=== PATIENT | female | born 1990 | race Caucasian/White ===

== ENCOUNTER 2023-04-23 18:15 | Emergency (ER) | payer BC, SELFPAY ==
[2023-04-23 18:21] VITALS: BP 137/80; PULSE 94; RESP 16; TEMP 37.3; O2SAT 98; BMI 29.9
[2023-04-23 18:32] VITALS: O2SAT 98
--- NOTE | 2023-04-23 18:32 | ECG_ITS ---
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
--- NOTE | 2023-04-23 18:37 | XR_ITS ---
[place] [id number] Patient Name: DEBBY GRIMES MRN: [id number] date: 1990 Sex: F Assigned Patient Location: ER Current Patient Location: ED.MAIN Accession/Order Number: [id number] Exam Date: 04/23/2023 19:05 Report Date: 04/23/2023 19:39 At the request of: LISA LENNON Procedure: XR chest 2V EXAMINATION: XR chest 2V 04/23/2023 4:39 PM PST, [id number]. HISTORY: chest pain TECHNIQUE: 2 views of the chest were acquired. COMPARISONS: None. FINDINGS: Lines/tubes/other: None. Heart and mediastinum: Within normal limits. Bones: No acute osseous abnormality. Lungs: Clear. Pleura: No pleural effusion or pneumothorax. Other: No pneumoperitoneum. XR/XR chest 2V IMPRESSION: No acute cardiopulmonary abnormality. Electronically authenticated by: BONITA DOAN Date: 04/23/2023 19:39
--- NOTE | 2023-04-23 18:47 | ED_ITS ---
Documented by User: Giselle Tolliver 04/23/23 20:12 HPI - Chest Pain General Chief Complaint: Chest Pain Stated Complaint: Chest Pain Time Seen by Provider: 04/23/23 18:20 Source: patient Mode of arrival: walk-in History of Present Illness HPI narrative: 32-year-old female presents here with a chief complaint of left-sided chest wall pain and pain in her throat. She states her throat is sore and having difficulty swallowing. She has a history of acid reflux. She states she believes this pain is due to a flare. She wanted to come to the emergency room to be certain it isn't another cause. she would like to get a gastrointestinal consult.Patient is alert and oriented. She has no history of cardiac issues. She does take omeprazole but has stopped recently. Patient states her pain on left side of chest is increased with deep inspiration. she states it feels like she needs to burp but has not been able. Denies any radiation of pain. patient vital signs are stable. She is in no acute distress. Related Data Previous Rx's Medication Instructions Recorded omeprazole 40 mg capsule,delayed 40 mg PO DAILY 30 days #30 caps 04/23/23 release Allergies Allergy/AdvReac Type Severity Reaction Status Date / Time coconut Allergy Severe Verified 04/23/23 18:25 Penicillins Allergy Severe Verified 04/23/23 18:25 Review of Systems ROS Narrative All Systems are negative except as noted/marked.All systems reviewed and otherwise negative [facility] Medical History (Updated 04/23/23 @ 20:13 by Giselle Tolliver) GERD (gastroesophageal reflux disease) ?K21.9 - Gastro-esophageal reflux disease without esophagitis (ICD-10) Exam Narrative Exam Narrative: Nurses note and vital signs reviewed and patient is not hypoxic. General: The patient appears well and in no apparent distress. Patient is resting comfortably on cart. Skin: Warm, dry, no pallor noted. There is no rash noted. Head: Normocephalic, atraumatic Eye: Normal conjunctiva, no drainage, EOMI. PERRL Ears, Nose, Mouth, and Throat: oral mucosa is moist. Nares patent. Mouth without vesicles. Ear canals patent. Tm's without Erythema Cardiovascular: Regular Rate and Rhythm Respiratory: Patient is in no distress, no accessory muscle use, lungs are clear to auscultation, no wheezing, rales or rhonchi GI: Normal bowel sounds, no tenderness to palpation, no masses appreciated. No rebound, guarding, or rigidity noted. Musculoskeletal: The patient has no evidence of calf tenderness, no pitting edema, symmetrical pulses noted bilaterally Neurological: A&O x4, normal speech Psychiatric: Cooperative Constitutional Vital Signs, click to edit/add: Last Vital Signs Temp 99.1 F 04/23/23 18:21 Pulse 94 H 04/23/23 18:21 Resp 16 04/23/23 18:21 BP 137/80 04/23/23 18:21 Pulse Ox 98 04/23/23 18:32 O2 Del Method Room Air 04/23/23 18:32 Course Vital Signs Vital signs: Vital Signs Temperature 99.1 F 04/23/23 18:21 Pulse Rate 94 H 04/23/23 18:21 Respiratory Rate 16 04/23/23 18:21 Blood Pressure 137/80 04/23/23 18:21 Pulse Oximetry 98 04/23/23 18:21 Oxygen Delivery Method Room Air 04/23/23 18:21 Temperature 99.1 F 04/23/23 18:21 Pulse Rate 94 H 04/23/23 18:21 Respiratory Rate 16 04/23/23 18:21 Blood Pressure 137/80 04/23/23 18:21 Pulse Oximetry 98 04/23/23 18:32 Oxygen Delivery Method Room Air 04/23/23 18:32 MDM - Chest Pain MDM Narrative Medical decision making narrative: 32-year-old female presents here with a chief complaint of left-sided chest wall pain and pain in her throat. She states her throat is sore and having difficulty swallowing. She has a history of acid reflux. She states she believes this pain is due to a flare. She wanted to come to the emergency room to be certain it isn't another cause. she would like to get a gastrointestinal consult.Patient is alert and oriented. She has no history of cardiac issues. She does take omeprazole but has stopped recently. Patient states her pain on left side of chest is increased with deep inspiration. she states it feels like she needs to burp but has not been able. Denies any radiation of pain. patient vital signs are stable. She is in no acute distress. pt symptoms presented as gastritis.pt has chronic History of GERD has not been taking any medications. Patient was medicated here with a gastrointestinal cocktail. Her symptoms have resolved. Labwork including CBC, CMP and troponin were obtained here during her hospital stay. All were negative. EKG and chest x- ray also performed and negative. Patient's cardiac score is zero. Patient has seen Dr. España the past for colonoscopy. She was requesting to follow-up with him. I advised her that he has moved out of the area and he is currently in [place]. She can follow-up with him if she would like.I did refer her to Dr. Mclain. She'll be given a prescription for omeprazole. She will follow-up with primary care physician and Dr Mclain or [facility]. patient questions answered, patient verbalizes understanding resupply of care. Patient is pain- free at this time.pt is stable to be discharged home Differential Diagnosis Differential diagnosis: Likely atypical chest pain, costochondritis, biliary colic and other (gerd) Medical Records Data Attestation: I reviewed the patient's medical records. Lab Data Attestation: I reviewed the patient's lab results. Labs: Lab Results 04/23/23 Range/Units 18:56 WBC 10.6 (4.0-11.0) 10^3/uL RBC 4.86 (4.20-5.40) 10^6/uL Hgb 13.6 (12.0-16.0) g/dL Hct 41.8 (36.0-48.0) % MCV 86.0 (81.0-99.0) fL MCH 28.0 (26.7-34.0) pg MCHC 32.5 (29.9-35.2) g/dL RDW 12.8 (11.0-15.0) % Plt Count 365 (150-450) 10^3/uL MPV 8.6 L (9.5-13.5) fL Neut % (Auto) 60.6 (43.0-75.0) % Lymph % (Auto) 30.8 (20.5-60.0) % [place] % (Auto) 7.5 (1.7-12.0) % Eos % (Auto) 0.0 L (0.9-7.0) % Baso % (Auto) 0.8 (0.2-2.0) % Neut # (Auto) 6.4 (1.4-6.5) 10^3/uL Lymph # (Auto) 3.3 (1.2-3.8) 10^3/uL [place] # (Auto) 0.8 (0.3-0.8) 10^3/uL Eos # (Auto) 0.0 (0.0-0.7) 10^3/uL Baso # (Auto) 0.1 (0.0-0.1) 10^3/uL Abs Immat Gran (auto) 0.03 (0.00-0.03) 10^3/uL Imm/Tot Granulo (auto) 0.3 (0.0-0.5) % Sodium 137 (136-145) mmol/L Potassium 3.3 L (3.5-5.1) mmol/L Chloride 101 (98-107) mmol/L Carbon Dioxide 27.6 (21.0-32.0) mmol/L Anion Gap 11.7 BUN 9.0 (7.0-18.0) mg/dL Creatinine 1.08 H (0.55-1.02) mg/dL Est GFR ( Amer) >60 (>=60) Est GFR (Non-Af Amer) 58 L (>=60) BUN/Creatinine Ratio 8.3 Glucose 91 (74-106) mg/dL Calcium 10.0 (8.5-10.1) mg/dL Total Bilirubin 0.4 (0.2-1.0) mg/dL AST 19 (15-37) U/L ALT 24 (14-59) U/L Alkaline Phosphatase 79 (46-116) U/L Troponin I High Sens <4.0 L (4.0-51.3) pg/mL Total Protein 9.1 H (6.4-8.2) g/dL Albumin 4.2 (3.4-5.0) g/dL Globulin 4.9 g/dL Albumin/Globulin Ratio 0.9 Imaging Data Chest x-ray: Attestation: I personally reviewed and interpreted this imaging study as follows: Radiologist's impression: Procedure: XR chest 2V EXAMINATION: XR chest 2V 04/23/2023 4:39 PM [facility], [id number]. HISTORY: chest pain TECHNIQUE: 2 views of the chest were acquired. COMPARISONS: None. FINDINGS: Lines/tubes/other: None. Heart and mediastinum: Within normal limits. Bones: No acute osseous abnormality. Lungs: Clear. Pleura: No pleural effusion or pneumothorax. Other: No pneumoperitoneum. IMPRESSION: No acute cardiopulmonary abnormality. ECG Data Attestation: I personally reviewed and interpreted this ECG as follows: Interpretation: 1828 EKG normal sinus rhythm no ectopy no ST elevation or depression, no STEMI, heart rate sinus rhythm with a 87 bpm, ME interval 140 ms, QR duration 84 ms Heart Score History: Slightly/Non-Suspicious ECG: Normal Age: <45 years Risk Factors: No Risk Factors Troponin: <Normal Limit Total Heart Score Recommendations & Risks:: 0 Discharge Plan Discharge Chief Complaint: Chest Pain Clinical Impression: Gastritis, Chest wall pain Patient Disposition: Home, Self-Care Time of Disposition Decision: 20:01 Condition: Good Mode of Transportation: Private Vehicle Prescriptions / Home Meds: New omeprazole 40 mg capsule,delayed release(DR/EC) 40 mg PO DAILY 30 Days Qty: 30 0RF Instructions: Gastritis (ED) Stand Alone Forms: Portal Instructions Referrals: JENIFER GOODMAN [Primary Care Provider] - 1 week Juan Manuel Mclain MD [Physician] - 1 week Discharge Date/Time: 04/23/23 20:16 Documented by User: Robert Medina MD 04/23/23 20:30 HPI - Chest Pain General Chief Complaint: Chest Pain Stated Complaint: Chest Pain Time Seen by Provider: 04/23/23 18:20 Related Data Previous Rx's Medication Instructions Recorded omeprazole 40 mg capsule,delayed 40 mg PO DAILY 30 days #30 caps 04/23/23 release Allergies Allergy/AdvReac Type Severity Reaction Status Date / Time coconut Allergy Severe Verified 04/23/23 18:25 Penicillins Allergy Severe Verified 04/23/23 18:25 PFSH PFSH Medical History (Updated 04/23/23 @ 20:13 by Giselle Tolliver) GERD (gastroesophageal reflux disease) ?K21.9 - Gastro-esophageal reflux disease without esophagitis (ICD-10) Exam Constitutional Vital Signs, click to edit/add: Last Vital Signs Temp 99.1 F 04/23/23 18:21 Pulse 94 H 04/23/23 18:21 Resp 16 04/23/23 18:21 BP 137/80 04/23/23 18:21 Pulse Ox 98 04/23/23 18:32 O2 Del Method Room Air 04/23/23 18:32 Course Vital Signs Vital signs: Vital Signs Temperature 99.1 F 04/23/23 18:21 Pulse Rate 94 H 04/23/23 18:21 Respiratory Rate 16 04/23/23 18:21 Blood Pressure 137/80 04/23/23 18:21 Pulse Oximetry 98 04/23/23 18:21 Oxygen Delivery Method Room Air 04/23/23 18:21 Temperature 99.1 F 04/23/23 18:21 Pulse Rate 94 H 04/23/23 18:21 Respiratory Rate 16 04/23/23 18:21 Blood Pressure 137/80 04/23/23 18:21 Pulse Oximetry 98 04/23/23 18:32 Oxygen Delivery Method Room Air 04/23/23 18:32 MDM - Chest Pain MDM Narrative Medical decision making narrative: 32-year-old female presents here with a chief complaint of left-sided chest wall pain and pain in her throat. She states her throat is sore and having difficulty swallowing. She has a history of acid reflux. She states she believes this pain is due to a flare. She wanted to come to the emergency room to be certain it isn't another cause. she would like to get a gastrointestinal consult.Patient is alert and oriented. She has no history of cardiac issues. She does take omeprazole but has stopped recently. Patient states her pain on left side of chest is increased with deep inspiration. she states it feels like she needs to burp but has not been able. Denies any radiation of pain. patient vital signs are stable. She is in no acute distress. pt symptoms presented as gastritis.pt has chronic History of GERD has not been taking any medications. Patient was medicated here with a gastrointestinal cocktail. Her symptoms have resolved. Labwork including CBC, CMP and troponin were obtained here during her hospital stay. All were negative. EKG and chest x- ray also performed and negative. Patient's cardiac score is zero. Patient has s griceldan Dr. España the past for colonoscopy. She was requesting to follow-up with him. I advised her that he has moved out of the area and he is currently in [place]. She can follow-up with him if she would like.I did refer her to Dr. Mclain. She'll be given a prescription for omeprazole. She will follow-up with primary care physician and Dr Mclain or [facility]. patient questions answered, patient verbalizes understanding resupply of care. Patient is pain- free at this time.pt is stable to be discharged home Patient was seen and evaluated by Dr. East with Giselle Tolliver PA-C, not Dr Adam Lab Data Labs: Lab Results 04/23/23 Range/Units 18:56 WBC 10.6 (4.0-11.0) 10^3/uL RBC 4.86 (4.20-5.40) 10^6/uL Hgb 13.6 (12.0-16.0) g/dL Hct 41.8 (36.0-48.0) % MCV 86.0 (81.0-99.0) fL MCH 28.0 (26.7-34.0) pg MCHC 32.5 (29.9-35.2) g/dL RDW 12.8 (11.0-15.0) % Plt Count 365 (150-450) 10^3/uL MPV 8.6 L (9.5-13.5) fL Neut % (Auto) 60.6 (43.0-75.0) % Lymph % (Auto) 30.8 (20.5-60.0) % [place] % (Auto) 7.5 (1.7-12.0) % Eos % (Auto) 0.0 L (0.9-7.0) % Baso % (Auto) 0.8 (0.2-2.0) % Neut # (Auto) 6.4 (1.4-6.5) 10^3/uL Lymph # (Auto) 3.3 (1.2-3.8) 10^3/uL [place] # (Auto) 0.8 (0.3-0.8) 10^3/uL Eos # (Auto) 0.0 (0.0-0.7) 10^3/uL Baso # (Auto) 0.1 (0.0-0.1) 10^3/uL Abs Immat Gran (auto) 0.03 (0.00-0.03) 10^3/uL Imm/Tot Granulo (auto) 0.3 (0.0-0.5) % Sodium 137 (136-145) mmol/L Potassium 3.3 L (3.5-5.1) mmol/L Chloride 101 (98-107) mmol/L Carbon Dioxide 27.6 (21.0-32.0) mmol/L Anion Gap 11.7 BUN 9.0 (7.0-18.0) mg/dL Creatinine 1.08 H (0.55-1.02) mg/dL Est GFR ( Amer) >60 (>=60) Est GFR (Non-Af Amer) 58 L (>=60) BUN/Creatinine Ratio 8.3 Glucose 91 (74-106) mg/dL Calcium 10.0 (8.5-10.1) mg/dL Total Bilirubin 0.4 (0.2-1.0) mg/dL AST 19 (15-37) U/L ALT 24 (14-59) U/L Alkaline Phosphatase 79 (46-116) U/L Troponin I High Sens <4.0 L (4.0-51.3) pg/mL Total Protein 9.1 H (6.4-8.2) g/dL Albumin 4.2 (3.4-5.0) g/dL Globulin 4.9 g/dL Albumin/Globulin Ratio 0.9 Heart Score Total Heart Score Recommendations & Risks:: 0 Discharge Plan Discharge Chief Complaint: Chest Pain Clinical Impression: Gastritis, Chest wall pain Patient Disposition: Home, Self-Care Time of Disposition Decision: 20:01 Condition: Good Mode of Transportation: Private Vehicle Prescriptions / Home Meds: New omeprazole 40 mg capsule,delayed release(DR/EC) 40 mg PO DAILY 30 Days Qty: 30 0RF Instructions: Gastritis (ED) Stand Alone Forms: Portal Instructions Referrals: JENIFER GOODMAN [Primary Care Provider] - 1 week Juan Manuel Mclain MD [Physician] - 1 week Discharge Date/Time: 04/23/23 20:16
[2023-04-23 19:10] LABS: Basophils Absolute Auto 0.1 10^3/uL (0.0-0.1); Basophils Percent Auto 0.8 % (0.2-2.0); Hematocrit 41.8 % (36.0-48.0); Hemoglobin 13.6 g/dL (12.0-16.0); Immature Granulocytes Abs Auto 0.03 10^3/uL (0.00-0.03); Immature Granulocytes Pct Auto 0.3 % (0.0-0.5); Lymphocytes Absolute Auto 3.3 10^3/uL (1.2-3.8); Lymphocytes Percent Auto 30.8 % (20.5-60.0); Mean Corpuscular HGB Conc 32.5 g/dL (29.9-35.2); Mean Platelet Volume 8.6 fL (9.5-13.5); Monocytes Absolute Auto 0.8 10^3/uL (0.3-0.8); Monocytes Percent Auto 7.5 % (1.7-12.0); Neutrophils Absolute Auto 6.4 10^3/uL (1.4-6.5); Neutrophils Percent Auto 60.6 % (43.0-75.0); Platelet Count 365 10^3/uL (150-450); Red Blood Count 4.86 10^6/uL (4.20-5.40); Red Cell Distribution Width 12.8 % (11.0-15.0); White Blood Count 10.6 10^3/uL (4.0-11.0)
[2023-04-23] MEDS: lidocaine HCL 15 ML, MAG HYDROX/ALUMINUM HYD/SIMETH 30 ML, HYOSCYAMINE SULFATE 0.25 MG PO (19:26)
[2023-04-23 19:29] LABS: Alanine Aminotransferase 24 U/L (14-59); Albumin Globulin Ratio 0.9; Albumin Level 4.2 g/dL (3.4-5.0); Alkaline Phosphatase 79 U/L (46-116); Anion Gap 11.7; Aspartate Amino Transferase 19 U/L (15-37); BUN Creatinine Ratio 8.3; Bilirubin Total 0.4 mg/dL (0.2-1.0); Carbon Dioxide 27.6 mmol/L (21.0-32.0); Chloride 101 mmol/L (98-107); Estimated GFR (African America >60 (>=60); Estimated GFR (Non-African Ame 58 (>=60); Globulin 4.9 g/dL; Glucose 91 mg/dL (74-106); Potassium 3.3 mmol/L (3.5-5.1); Sodium 137 mmol/L (136-145); Total Protein 9.1 g/dL (6.4-8.2); Troponin I High Sensitivity <4.0 pg/mL (4.0-51.3)
== END 2023-04-23 20:16 | disposition home or self-care (01) ==
PROVIDERS: Physician Assistant; Emergency Provider Emergency Medicine; PCP Family Medicine
DX: K29.70 Gastritis, unspecified, without bleeding (principal); R07.89 Other chest pain; K21.9 Gastro-esophageal reflux disease without esophagitis
CPT/HCPCS: 36415; 71046; 80053; 84484; 85025; 85378; 93005; 99285

== ENCOUNTER 2023-05-11 17:55 | Emergency (ER) | payer BC, SELFPAY ==
[2023-05-11] VITALS (12 sets, daily range): BP systolic 127–172; BP diastolic 88–90; PULSE 94–123; RESP 14–25; TEMP 36.6; O2SAT 97–100; BMI 26.7
--- OUTSIDE RECORDS SUMMARY | 2023-05-11 18:00 | XMS_ITS | CCD ---
Author Name Unknown Address [address] [place] [address] Organization [facility] Care Team Providers Care Librarian Special Library Name Role Phone DO Maulik Merrill Primary Care Provider [phone] MD Andrew Sorenson Emergency Provider [phone] MD Andrew Sorenson Attending Provider MD Mary Darnell Attending Provider DO Desirae Maulik Primary Care Provider DO Maulik Merrill Attending Provider [phone] Kuns, Maulik Primary Care Unavailable Kuns, Maulik Attending Unavailable Kuns, Maulik Admitting Unavailable Andrew Sorenson Admitting Unavailable Andrew Sorenson Attending Unavailable Kuns, Maulik Primary Care Unavailable Andrew Sorenson Admitting Unavailable Andrew Sorenson Attending Unavailable Kuns, Maulik Primary Care Unavailable Printy, Mary Admitting Unavailable Printy, Mary Attending Unavailable Kuns, Maulik Primary Care Unavailable Printy, Mary Attending Unavailable Printy, Mary Admitting Unavailable Kuns, Maulik Primary Care Unavailable Printy, Mary Attending Unavailable Printy, Mary Admitting Unavailable Kuns, Maulik Primary Care Unavailable Kuns, Maulik Primary Care Unavailable Printy, Mary Attending Unavailable Printy, Mary Admitting Unavailable Kuns, Maulik Primary Care Unavailable Printy, Mary Attending Unavailable Printy, Mary Admitting Unavailable Kuns, Maulik Primary Care Unavailable Printy, Mary Attending Unavailable Printy, Mary Admitting Unavailable Kuns, Maulik Primary Care Unavailable Printy, Mary Attending Unavailable Printy, Mary Admitting Unavailable Kuns, Maulik Primary Care Unavailable Printy, Mary Attending Unavailable Printy, Mary Admitting Unavailable PRINTY, MARY J Attending Unavailable Kuns, Maulik Unavailable Allergies Allergy Classification Reported Allergen(s) Allergy Type Date of Onset Reaction(s) Facility (12 sources) Coconut extract; Translations: [coconut] Drug Allergy 3 anaphylaxis [facility] (11 sources) Penicillins; Translations: [Penicillins] Propensity to adverse reactions 3 Nausea/Vomitin g [facility] (1 source) Penicillin G Drug Allergy vomiting [facility] Other Medications Current Medications Medication Drug Class(es) Dates Sig (Normalized) Sig (Original) cyclobenzaprine hydrochloride 10 mg oral tablet (1 source) Muscle Relaxant Start: 05-05-2023 take 1 tablet by mouth every twenty-four hours Cyclobenzaprine HCl 10 MG 1 tablet at bedtime as needed Orally Once a day for 30 days May, Active ketorolac tromethamine 10 mg oral tablet (10 sources) Nonsteroidal Anti-inflammatory Drug, Cyclooxygenase Inhibitor Start: 07-13-2021 take 10 mg by mouth every six hours Ketorolac Active 10 MG PO Q6H July 13, 2021 12:00am lidocaine 0.05 mg/mg medicated patch (10 sources) Antiarrhythmic, Amide Local Anesthetic Start: 07-13-2021 apply 1 dose topically once daily Lidocaine Active 1 PATCH TOPICAL Daily July 13, 2021 12:00am leave on most painful area for up to 12 hrs Mylanta Maximum Strength 400-400-40 MG/5ML (1 source) take 10 mL by mouth twice daily as needed Mylanta Maximum Strength 400-400-40 MG/5ML 10 mL as needed Orally Twice a day Active omeprazole 40 mg delayed release oral capsule (1 source) Proton Pump Inhibitor take 1 capsule by mouth once daily Omeprazole 40 MG 1 capsule 30 minutes before morning meal Orally Once a day Active tiZANidine 4 mg oral capsule (10 sources) Central alpha-2 Adrenergic Agonist Start: 07-13-2021 take 4 mg by mouth three times daily Tizanidine Active 4 MG PO Three times daily July 13, 2021 12:00am Completed/Discontinued Medications Medication Drug Class(es) Dates Sig (Normalized) Sig (Original) acetaminophen 325 mg / oxyCODONE hydrochloride 5 mg oral tablet (10 sources) Opioid Agonist Start: 07-12-2017 End: 07-19-2017 take 1 tablet by mouth every six hours Oxycodone-Acetamin ophen Discontinued 1 TAB PO Q6H 28 7 July 12, 2017 July 18, 2017 11:04pm ibuprofen 800 mg oral tablet (10 sources) Nonsteroidal Anti-inflammatory Drug Start: 07-12-2017 End: 08-06-2018 take 800 mg by mouth three times daily Ibuprofen Discontinued 800 MG PO Three times daily July 11, 2017 11:00pm August 06, 2018 5:07am Problems Active Problems Problem Classification Problem Date Documented Da te Episodic/Chronic Abdominal pain (3 sources) Unspecified abdominal pain; Translations: [Pain in pelvis] Onset: 3 Episodic Administrative/social admission (1 source) Other specified counseling; Translations: [Other specified counseling] Onset: 3 Episodic Esophageal disorders (1 source) Gastroesophageal reflux disease; Translations: [Gastro-esophageal reflux disease without esophagitis] Chronic Fluid and electrolyte disorders (2 sources) Hypokalemia; Translations: [Hypokalemia] Onset: 3 Episodic Gastritis and duodenitis (1 source) Gastritis; Translations: [Gastritis, unspecified, without bleeding] Episodic Other endocrine disorders (1 source) Polycystic ovarian syndrome; Translations: [Polycystic ovarian syndrome] Onset: 3 Chronic Other endocrine disorders (1 source) Polycystic ovary syndrome; Translations: [Polycystic ovarian syndrome] Chronic Other gastrointestinal disorders (1 source) Dysphagia; Translations: [Dysphagia, unspecified] Episodic Other injuries and conditions due to external causes (1 source) Fracture of bone; Translations: [Other injury of unspecified body region] Episodic Other nutritional; endocrine; and metabolic disorders (1 source) Body mass index 25-29 - overweight; Translations: [Body mass index (BMI) 28.0-28.9, adult] Episodic Other and delivery including normal (10 sources) ; Translations: [Encounter for supervision of normal , unspecified, unspecified trimester] 06-25-2022 Episodic Other screening for suspected conditions (not mental disorders or infectious disease) (2 sources) Encounter for screening for cardiovascular disorders; Translations: [Patient encounter status] Onset: 3 Episodic Spondylosis; intervertebral disc disorders; other back problems (10 sources) Torticollis; Translations: [Torticollis] 03-13-2022 Episodic Sprains and strains (10 sources) Strain of neck muscle; Translations: [Strain of muscle, fascia and tendon at neck level, initial encounter] 07-11-2021 Episodic Thyroid disorders (1 source) Goiter; Translations: [Nontoxic goiter, unspecified] Chronic Unclassified (1 source) Nontoxic goiter, unspecified; Translations: [Nontoxic goiter, unspecified] Onset: 3 Unclassified (1 source) Supervision of high risk , unspecified, unspecified trimester; Translations: [Supervision of high risk , unspecified, unspecified trimester] Onset: 3 Past or Other Problems Problem Classification Problem Date Documented Da te Episodic/Chronic Ectopic (1 source) Unspecified ectopic without intrauterine ; Translations: [Unspecified ectopic without intrauterine ] Onset: 06-30-2022 Episodic Results Test Name Value Interpretation Reference Range Facility A1C with Estimated Average G ori 04-29-2023 Glucose [Mass/Vol] 117 mg/dL Normal [facility] Comment on above: Order Comment: Reaso n for Exam Establishing care with new doctor, encounter for;Flank pain; Result Comment: PERF ORMED BY: [place] [address] PATHOLOGIST AUDIO VISUAL COLLECTIONS COORDINATOR DARIANA ZENG M.D. Performed By: #### T SH3, LIPID, CBC, A1C WTH eA, CRP, CMP, URIC, ESR #### [facility] [address] [place] [address] [place] #### CINDY, RA #### [facility] , HbA1c (Bld) [Mass fraction] 5.7 % High 4.3-5.6 [facility] Comment on above: Order Comment: Reaso n for Exam Establishing care with new doctor, encounter for;Flank pain; Result Comment: Incr eased risk for diabetes: 5.7 - 6.4 diabetes: >6.4 glycemic control for adults with diabetes: <7.0 Performed By: #### T SH3, LIPID, CBC, A1C WTH eA, CRP, CMP, URIC, ESR #### [facility] [address] [place] [address] [place] #### CINDY, RA #### [facility] , CINDY Antinuclear Antibodieson 04-29-2023 Antinuclear Abs, IFA Negative Normal . [facility] Comment on above: Order Comment: Reaso n for Exam Establishing care with new doctor, encounter for;Flank pain; Reason for Exam Flank pain;PCOS (polycystic ovarian syndrome);Hypokalemia FASTING. JKW Result Comment: Nega tive <1:80 Borderline 1:80 Positive >1:80 ICAP nomenclature: AC-0 For more information about Hep-2 cell patterns use ANApatterns.org, the official website for the International Consensus on Antinuclear Antibody (CINDY) Patterns (ICAP). Performed at: [facility] [address] [id number] Electrical Tryout Person: Patricio Centeno PhD, Phone: [phone] PERFORMED BY: [place] [address] PATHOLOGIST AUDIO VISUAL COLLECTIONS COORDINATOR DARIANA ZENG M.D. Performed By: #### T SH3, LIPID, CBC, A1C WTH eA, CRP, CMP, URIC, ESR #### [address] #### CINDY, RA #### [facility] , Alanine aminotransferase [En zymatic activity/volume] in Serum or PlasmaOrdered By: Maulik Merrill on 04-29-2023 ALT [Catalytic activity/Vol] 29 U/L 7-52 [facility] Albumin [Mass/volume] in Ser um or Plasma by Bromocresol green (BCG) dye binding methoOrdered By: Maulik Merrill on 04-29-2023 Albumin BCG dye [Mass/Vol] 4.7 g/dL 3.5-5.7 [facility] Alkaline phosphatase [Enzyma tic activity/volume] in Serum or PlasmaOrdered By: Mualik Merrill on 04-29-2023 ALP [Catalytic activity/Vol] 63 U/L 34-104 [facility] Aspartate aminotransferase [ Enzymatic activity/volume] in Serum or PlasmaOrdered By: Maulik Merrill on 04-29-2023 AST [Catalytic activity/Vol] 26 U/L 13-39 [facility] Basophils Auto (Bld) [#/Vol] Ordered By: Maulik Merrill on 04-29-2023 Basophils (Bld) [#/Vol] 0.0 10*3/uL 0.0-0.2 [facility] Basophils/100 WBC Auto (Bld) Ordered By: Maulik Merrill on 04-29-2023 Basophils/100 WBC (Bld) 0.7 % . [facility] Bilirubin.total [Mass/volume ] in Serum or PlasmaOrdered By: Maulik Merrill on 04-29-2023 Bilirubin [Mass/Vol] 0.6 mg/dL 0.3-1.0 [facility] C reactive protein [Mass/vol ume] in Serum or PlasmaOrdered By: Maulik Merrill on 04-29-2023 CRP [Mass/Vol] 1.8 mg/dL 0.0-0.5 [facility] C-Reactive Proteinon 023 C-Reactive Protein 1.8 mg/dL High 0.0-0.[address] [facility] Comment on above: Order Comment: Reaso n for Exam Establishing care with new doctor, encounter for;Flank pain; Reason for Exam Flank pain;PCOS (polycystic ovarian syndrome);Hypokalemia FASTING. JKW Performed By: #### T SH3, LIPID, CBC, A1C WTH eA, CRP, CMP, URIC, ESR #### [facility] [address] [place] [address] [place] #### CINDY, RA #### [facility] , Calcium [Mass/volume] in Ser um or PlasmaOrdered By: Maulik Merrill on 04-29-2023 Calcium [Mass/Vol] 9.7 mg/dL 8.6-10.[address] [facility] Carbon dioxide, total [Moles /volume] in Serum or PlasmaOrdered By: Maulik Merrill on 04-29-2023 CO2 [Moles/Vol] 28.1 mmol/L 21.0-31.0 [facility] Chloride [Moles/volume] in S nabila or PlasmaOrdered By: Maulik Merrill on 04-29-2023 Chloride [Moles/Vol] 105 mmol/L 98-107 [facility] Cholesterol [Mass/volume] in Serum or PlasmaOrdered By: Maulik Merrill on 04-29-2023 Cholesterol [Mass/Vol] 212 mg/dL 140-200 [facility] Comment on above: Chol less than 200 m g/dl low riskChol 201-239 mg/dl borderline riskChol 240 mg/dl and greater high risk Cholesterol in LDL Calc [Mas s/Vol]Ordered By: Maulik Merrill on 04-29-2023 Cholesterol in LDL [Mass/Vol] 144 mg/dL 0-100 [facility] Comment on above: LDL ATP III CLASSIFI CATIONLDL less than 100 mg/dL OptimalLDL 100-129 mg/dL Near or above optimalLDL 130-159 mg/dL Borderline highLDL 160-189 mg/dL HighLDL greater than 189 mg/dL Very high Cholesterol in VLDL Calc [Ma ss/Vol]Ordered By: Maulik Merrill on 04-29-2023 Cholesterol in VLDL [Mass/Vol] 25 mg/dL [facility] Complete Blood Count Auto Di ffon 04-29-2023 Basophils (Bld) [#/Vol] 0.0 10*3/uL Normal 0.0-0.2 [facility] Comment on above: Order Comment: Reaso n for Exam Establishing care with new doctor, encounter for;Flank pain; Reason for Exam Flank pain;PCOS (polycystic ovarian syndrome);Hypokalemia Performed By: #### T SH3, LIPID, CBC, A1C WTH eA, CRP, CMP, URIC, ESR #### [facility] [address] [place] [address] [place] #### CINDY, RA #### [facility] , Basophils/100 WBC (Bld) 0.7 % Normal . [facility] Comment on above: Order Comment: Reaso n for Exam Establishing care with new doctor, encounter for;Flank pain; Reason for Exam Flank pain;PCOS (polycystic ovarian syndrome);Hypokalemia Performed By: #### T SH3, LIPID, CBC, A1C WTH eA, CRP, CMP, URIC, ESR #### [facility] [address] [place] [address] [place] #### CINDY, RA #### [facility] , Eosinophils (Bld) [#/Vol] 0.1 10*3/uL Normal 0.0-0.45 [facility] Comment on above: Order Comment: Reaso n for Exam Establishing care with new doctor, encounter for;Flank pain; Reason for Exam Flank pain;PCOS (polycystic ovarian syndrome);Hypokalemia Performed By: #### T SH3, LIPID, CBC, A1C WTH eA, CRP, CMP, URIC, ESR #### [address] #### CINDY, RA #### [facility] , Eosinophils/100 WBC (Bld) 2.1 % Normal . [facility] Comment on above: Order Comment: Reaso n for Exam Establishing care with new doctor, encounter for;Flank pain; Reason for Exam Flank pain;PCOS (polycystic ovarian syndrome);Hypokalemia Performed By: #### T SH3, LIPID, CBC, A1C WTH eA, CRP, CMP, URIC, ESR #### [place] [address] [place] #### CINDY, RA #### [facility] , Erythrocyte distribution width (RBC) [Ratio] 13.4 % Normal 11.9-15.3 [facility] Comment on above: Order Comment: Reaso n for Exam Establishing care with new doctor, encounter for;Flank pain; Reason for Exam Flank pain;PCOS (polycystic ovarian syndrome);Hypokalemia Performed By: #### T SH3, LIPID, CBC, A1C WTH eA, CRP, CMP, URIC, ESR #### [place] [address] [place] #### CINDY, RA #### [facility] , Hematocrit (Bld) [Volume fraction] 40.0 % Normal 34.0-46.4 [facility] Comment on above: Order Comment: Reaso n for Exam Establishing care with new doctor, encounter for;Flank pain; Reason for Exam Flank pain;PCOS (polycystic ovarian syndrome);Hypokalemia Performed By: #### T SH3, LIPID, CBC, A1C WTH eA, CRP, CMP, URIC, ESR #### [facility] [address] [place] [address] #### CINDY, RA #### [facility] , Hemoglobin (Bld) [Mass/Vol] 13.6 g/dL Normal 11.8-15.4 [facility] Comment on above: Order Comment: Reaso n for Exam Establishing care with new doctor, encounter for;Flank pain; Reason for Exam Flank pain;PCOS (polycystic ovarian syndrome);Hypokalemia Performed By: #### T SH3, LIPID, CBC, A1C WTH eA, CRP, CMP, URIC, ESR #### [facility] [address] [place] [address] #### CINDY, RA #### [facility] , Lymphocytes (Bld) [#/Vol] 2.3 10*3/uL Normal 1.00-4.8 [facility] Comment on above: Order Comment: Reaso n for Exam Establishing care with new doctor, encounter for;Flank pain; Reason for Exam Flank pain;PCOS (polycystic ovarian syndrome);Hypokalemia Performed By: #### T SH3, LIPID, CBC, A1C WTH eA, CRP, CMP, URIC, ESR #### [facility] [address] [place] [address] #### CINDY, RA #### [facility] , Lymphocytes/100 WBC (Bld) 35.3 % Normal . [facility] Comment on above: Order Comment: Reaso n for Exam Establishing care with new doctor, encounter for;Flank pain; Reason for Exam Flank pain;PCOS (polycystic ovarian syndrome);Hypokalemia Performed By: #### T SH3, LIPID, CBC, A1C WTH eA, CRP, CMP, URIC, ESR #### [facility] [address] [place] [address] [place] #### CINDY, RA #### [facility] , MCH (RBC) [Entitic mass] 28.3 pg Normal 24.7-34.3 [facility] Comment on above: Order Comment: Reaso n for Exam Establishing care with new doctor, encounter for;Flank pain; Reason for Exam Flank pain;PCOS (polycystic ovarian syndrome);Hypokalemia Performed By: #### T SH3, LIPID, CBC, A1C WTH eA, CRP, CMP, URIC, ESR #### [place] [address] [place] #### CINDY, RA #### [facility] , MCV (RBC) [Entitic vol] 83.2 fL Normal 80-100 [facility] Comment on above: Order Comment: Reaso n for Exam Establishing care with new doctor, encounter for;Flank pain; Reason for Exam Flank pain;PCOS (polycystic ovarian syndrome);Hypokalemia Performed By: #### T SH3, LIPID, CBC, A1C WTH eA, CRP, CMP, URIC, ESR #### [place] [address] [place] #### CINDY, RA #### [facility] , Mean Corpuscular HGB Conc 34.0 g/dL Normal 32.0-35.0 [facility] Comment on above: Order Comment: Reaso n for Exam Establishing care with new doctor, encounter for;Flank pain; Reason for Exam Flank pain;PCOS (polycystic ovarian syndrome);Hypokalemia Performed By: #### T SH3, LIPID, CBC, A1C WTH eA, CRP, CMP, URIC, ESR #### [place] [address] [place] #### CINDY, RA #### [facility] , Monocytes (Bld) [#/Vol] 0.6 10*3/uL Normal 0.0-0.8 [facility] Comment on above: Order Comment: Reaso n for Exam Establishing care with new doctor, encounter for;Flank pain; Reason for Exam Flank pain;PCOS (polycystic ovarian syndrome);Hypokalemia Performed By: #### T SH3, LIPID, CBC, A1C WTH eA, CRP, CMP, URIC, ESR #### [place] [address] [place] #### CINDY, RA #### [facility] , Monocytes/100 WBC (Bld) 8.4 % Normal . [facility] Comment on above: Order Comment: Reaso n for Exam Establishing care with new doctor, encounter for;Flank pain; Reason for Exam Flank pain;PCOS (polycystic ovarian syndrome);Hypokalemia Performed By: #### T SH3, LIPID, CBC, A1C WTH eA, CRP, CMP, URIC, ESR #### [facility] [address] [place] [address] [place] #### CINDY, RA #### [facility] , Neutrophils (Bld) [#/Vol] 3.5 10*3/uL Normal 1.8-7.7 [facility] Comment on above: Order Comment: Reaso n for Exam Establishing care with new doctor, encounter for;Flank pain; Reason for Exam Flank pain;PCOS (polycystic ovarian syndrome);Hypokalemia Performed By: #### T SH3, LIPID, CBC, A1C WTH eA, CRP, CMP, URIC, ESR #### [place] [address] [place] #### CINDY, RA #### [facility] , Neutrophils/100 WBC (Bld) 53.5 % Normal . [facility] Comment on above: Order Comment: Reaso n for Exam Establishing care with new doctor, encounter for;Flank pain; Reason for Exam Flank pain;PCOS (polycystic ovarian syndrome);Hypokalemia Performed By: #### T SH3, LIPID, CBC, A1C WTH eA, CRP, CMP, URIC, ESR #### [facility] [address] [place] [address] [place] #### CINDY, RA #### [facility] , NRBC% 0.1 /100{WBC} Normal 0-0.5 [facility] Comment on above: Order Comment: Reaso n for Exam Establishing care with new doctor, encounter for;Flank pain; Reason for Exam Flank pain;PCOS (polycystic ovarian syndrome);Hypokalemia Performed By: #### T SH3, LIPID, CBC, A1C WTH eA, CRP, CMP, URIC, ESR #### [facility] [address] [place] [address] [place] #### CINDY, RA #### [facility] , Platelet mean volume (Bld) [Entitic vol] 6.9 fL Normal 6.3-10.7 [facility] Comment on above: Order Comment: Reaso n for Exam Establishing care with new doctor, encounter for;Flank pain; Reason for Exam Flank pain;PCOS (polycystic ovarian syndrome);Hypokalemia Performed By: #### T SH3, LIPID, CBC, A1C WTH eA, CRP, CMP, URIC, ESR #### [facility] [address] [place] [address] [place] #### CINDY, RA #### [facility] , Platelets (Bld) [#/Vol] 341 10*3/uL Normal 150-450 [facility] Comment on above: Order Comment: Reaso n for Exam Establishing care with new doctor, encounter for;Flank pain; Reason for Exam Flank pain;PCOS (polycystic ovarian syndrome);Hypokalemia Performed By: #### T SH3, LIPID, CBC, A1C WTH eA, CRP, CMP, URIC, ESR #### [facility] [address] [place] [address] [place] #### CINDY, RA #### [facility] , RBC (Bld) [#/Vol] 4.81 10*6/uL Normal 3.60-5.00 [facility] Comment on above: Order Comment: Reaso n for Exam Establishing care with new doctor, encounter for;Flank pain; Reason for Exam Flank pain;PCOS (polycystic ovarian syndrome);Hypokalemia Performed By: #### T SH3, LIPID, CBC, A1C WTH eA, CRP, CMP, URIC, ESR #### [facility] [address] [place] [address] [place] #### CINDY, RA #### [facility] , WBC (Bld) [#/Vol] 6.6 10*3/uL Normal 3.8-11.[address] [facility] Comment on above: Order Comment: Reaso n for Exam Establishing care with new doctor, encounter for;Flank pain; Reason for Exam Flank pain;PCOS (polycystic ovarian syndrome);Hypokalemia Performed By: #### T SH3, LIPID, CBC, A1C WTH eA, CRP, CMP, URIC, ESR #### [facility] [address] [place] [address] [place] #### CINDY, RA #### [facility] , Comprehensive Metabolic Pane jhon 04-29-2023 Albumin [Mass/Vol] 4.7 g/dL Normal 3.5-5.[address] [facility] Comment on above: Order Comment: Reaso n for Exam Establishing care with new doctor, encounter for;Flank pain; Reason for Exam Flank pain;PCOS (polycystic ovarian syndrome);Hypokalemia FASTING. JKW Performed By: #### T SH3, LIPID, CBC, A1C WTH eA, CRP, CMP, URIC, ESR #### [place] [address] [place] #### CINDY, RA #### [facility] , Albumin/Globulin [Mass ratio] 1.3 {ratio} Normal [facility] Comment on above: Order Comment: Reaso n for Exam Establishing care with new doctor, encounter for;Flank pain; Reason for Exam Flank pain;PCOS (polycystic ovarian syndrome);Hypokalemia FASTING. JKW Performed By: #### T SH3, LIPID, CBC, A1C WTH eA, CRP, CMP, URIC, ESR #### [facility] [address] [place] [address] [place] #### CINDY, RA #### [facility] , ALP [Catalytic activity/Vol] 63 U/L Normal 34-104 [facility] Comment on above: Order Comment: Reaso n for Exam Establishing care with new doctor, encounter for;Flank pain; Reason for Exam Flank pain;PCOS (polycystic ovarian syndrome);Hypokalemia FASTING. JKW Performed By: #### T SH3, LIPID, CBC, A1C WTH eA, CRP, CMP, URIC, ESR #### [place] [address] [place] #### CINDY, RA #### [facility] , ALT [Catalytic activity/Vol] 29 U/L Normal 7-52 [facility] Comment on above: Order Comment: Reaso n for Exam Establishing care with new doctor, encounter for;Flank pain; Reason for Exam Flank pain;PCOS (polycystic ovarian syndrome);Hypokalemia FASTING. JKW Performed By: #### T SH3, LIPID, CBC, A1C WTH eA, CRP, CMP, URIC, ESR #### [facility] [address] [place] [address] [place] #### CINDY, RA #### [facility] , Anion gap [Moles/Vol] 8.9 mmol/L Normal 6.0-15.0 [facility] Comment on above: Order Comment: Reaso n for Exam Establishing care with new doctor, encounter for;Flank pain; Reason for Exam Flank pain;PCOS (polycystic ovarian syndrome);Hypokalemia FASTING. JKW Performed By: #### T SH3, LIPID, CBC, A1C WTH eA, CRP, CMP, URIC, ESR #### [facility] [address] [place] [address] [place] #### CINDY, RA #### [facility] , AST [Catalytic activity/Vol] 26 U/L Normal 13-39 [facility] Comment on above: Order Comment: Reaso n for Exam Establishing care with new doctor, encounter for;Flank pain; Reason for Exam Flank pain;PCOS (polycystic ovarian syndrome);Hypokalemia FASTING. JKW Performed By: #### T SH3, LIPID, CBC, A1C WTH eA, CRP, CMP, URIC, ESR #### [facility] [address] [place] [address] [place] #### CINDY, RA #### [facility] , Bilirubin [Mass/Vol] 0.6 mg/dL Normal 0.3-1.0 [facility] Comment on above: Order Comment: Reaso n for Exam Establishing care with new doctor, encounter for;Flank pain; Reason for Exam Flank pain;PCOS (polycystic ovarian syndrome);Hypokalemia FASTING. JKW Performed By: #### T SH3, LIPID, CBC, A1C WTH eA, CRP, CMP, URIC, ESR #### [facility] [address] [place] [address] [place] #### CINDY, RA #### [facility] , Calcium [Mass/Vol] 9.7 mg/dL Normal 8.6-10.[address] [facility] Comment on above: Order Comment: Reaso n for Exam Establishing care with new doctor, encounter for;Flank pain; Reason for Exam Flank pain;PCOS (polycystic ovarian syndrome);Hypokalemia FASTING. JKW Performed By: #### T SH3, LIPID, CBC, A1C WTH eA, CRP, CMP, URIC, ESR #### [place] [address] [place] #### CINDY, RA #### [facility] , Chloride [Moles/Vol] 105 mmol/L Normal 98-107 [facility] Comment on above: Order Comment: Reaso n for Exam Establishing care with new doctor, encounter for;Flank pain; Reason for Exam Flank pain;PCOS (polycystic ovarian syndrome);Hypokalemia FASTING. JKW Performed By: #### T SH3, LIPID, CBC, A1C WTH eA, CRP, CMP, URIC, ESR #### [place] [address] [place] #### CINDY, RA #### [facility] , CO2 [Moles/Vol] 28.1 mmol/L Normal 21.0-31.0 [facility] Comment on above: Order Comment: Reaso n for Exam Establishing care with new doctor, encounter for;Flank pain; Reason for Exam Flank pain;PCOS (polycystic ovarian syndrome);Hypokalemia FASTING. JKW Performed By: #### T SH3, LIPID, CBC, A1C WTH eA, CRP, CMP, URIC, ESR #### [place] [address] [place] #### CINDY, RA #### [facility] , Creatinine [Mass/Vol] 0.93 mg/dL Normal 0.60-1.20 [facility] Comment on above: Order Comment: Reaso n for Exam Establishing care with new doctor, encounter for;Flank pain; Reason for Exam Flank pain;PCOS (polycystic ovarian syndrome);Hypokalemia FASTING. JKW Performed By: #### T SH3, LIPID, CBC, A1C WTH eA, CRP, CMP, URIC, ESR #### [place] [address] [place] #### CINDY, RA #### [facility] , GFR/1.73 sq M.predicted MDRD (S/P/Bld) [Vol rate/Area] mL/min/{1.73_m2} Normal [facility] Comment on above: Order Comment: Reaso n for Exam Establishing care with new doctor, encounter for;Flank pain; Reason for Exam Flank pain;PCOS (polycystic ovarian syndrome);Hypokalemia FASTING. JKW Performed By: #### T SH3, LIPID, CBC, A1C WTH eA, CRP, CMP, URIC, ESR #### [place] [address] [place] #### CINDY, RA #### [facility] , Globulin (S) [Mass/Vol] 3.5 g/dL Normal [facility] Comment on above: Order Comment: Reaso n for Exam Establishing care with new doctor, encounter for;Flank pain; Reason for Exam Flank pain;PCOS (polycystic ovarian syndrome);Hypokalemia FASTING. JKW Performed By: #### T SH3, LIPID, CBC, A1C WTH eA, CRP, CMP, URIC, ESR #### [place] [address] [place] #### CINDY, RA #### [facility] , Glucose [Mass/Vol] 94 mg/dL Normal 70-[address] [facility] Comment on above: Order Comment: Reaso n for Exam Establishing care with new doctor, encounter for;Flank pain; Reason for Exam Flank pain;PCOS (polycystic ovarian syndrome);Hypokalemia FASTING. JKW Result Comment: [facility] Glucose Reference Range is dependent on time and content of last meal. Glucose of more than 200 mg/dL in a nonstressed, ambulatory subject supports the diagnosis of Diabetes Mellitus. ADA recommended reference range Performed By: #### T SH3, LIPID, CBC, A1C WTH eA, CRP, CMP, URIC, ESR #### [facility] [address] [place] [address] [place] #### CINDY, RA #### [facility] , Potassium [Moles/Vol] 4.0 mmol/L Normal 3.5-5.1 [facility] Comment on above: Order Comment: Reaso n for Exam Establishing care with new doctor, encounter for;Flank pain; Reason for Exam Flank pain;PCOS (polycystic ovarian syndrome);Hypokalemia FASTING. JKW Performed By: #### T SH3, LIPID, CBC, A1C WTH eA, CRP, CMP, URIC, ESR #### [place] [address] [place] #### CINDY, RA #### [facility] , Protein [Mass/Vol] 8.2 g/dL Normal 6.4-8.[address] [facility] Comment on above: Order Comment: Reaso n for Exam Establishing care with new doctor, encounter for;Flank pain; Reason for Exam Flank pain;PCOS (polycystic ovarian syndrome);Hypokalemia FASTING. JKW Performed By: #### T SH3, LIPID, CBC, A1C WTH eA, CRP, CMP, URIC, ESR #### [place] [address] [place] #### CINDY, RA #### [facility] , Sodium [Moles/Vol] 138 mmol/L Normal 136-[address] [facility] Comment on above: Order Comment: Reaso n for Exam Establishing care with new doctor, encounter for;Flank pain; Reason for Exam Flank pain;PCOS (polycystic ovarian syndrome);Hypokalemia FASTING. JKW Performed By: #### T SH3, LIPID, CBC, A1C WTH eA, CRP, CMP, URIC, ESR #### [place] [address] [place] #### CINDY, RA #### [facility] , Urea nitrogen [Mass/Vol] 8 mg/dL Normal 7-25 [facility] Comment on above: Order Comment: Reaso n for Exam Establishing care with new doctor, encounter for;Flank pain; Reason for Exam Flank pain;PCOS (polycystic ovarian syndrome);Hypokalemia FASTING. JKW Performed By: #### T SH3, LIPID, CBC, A1C WTH eA, CRP, CMP, URIC, ESR #### [facility] [address] [place] [address] [place] #### CINDY, RA #### [facility] , Creatinine [Mass/volume] in Serum or PlasmaOrdered By: Maulik Merrill on 04-29-2023 Creatinine [Mass/Vol] 0.93 mg/dL 0.60-1.20 [facility] Eosinophils Auto (Bld) [#/Vo l]Ordered By: Maulik Merrill on 04-29-2023 Eosinophils (Bld) [#/Vol] 0.1 10*3/uL 0.0-0.45 [facility] Eosinophils/100 WBC Auto (Bl d)Ordered By: Maulik Merrill on 04-29-2023 Eosinophils/100 WBC (Bld) 2.1 % . [facility] Erythrocyte Sedimentation Ra karel 04-29-2023 ESR (Bld) [Velocity] 31 mm/h High 0-19 [facility] Comment on above: Order Comment: Reaso n for Exam Establishing care with new doctor, encounter for;Flank pain; Reason for Exam Flank pain;PCOS (polycystic ovarian syndrome);Hypokalemia Result Comment: PERF ORMED BY: [place] [address] PATHOLOGIST AUDIO VISUAL COLLECTIONS COORDINATOR DARIANA ZENG M.D. Performed By: #### T SH3, LIPID, CBC, A1C WTH eA, CRP, CMP, URIC, ESR #### [place] [address] [place] #### CINDY, RA #### [facility] , Erythrocyte distribution wid th Auto (RBC) [Ratio]Ordered By: Maulik Merrill on 04-29-2023 Erythrocyte distribution width (RBC) [Ratio] 13.4 % 11.9-15.3 [facility] Erythrocyte sedimentation ra te by Photometric methodOrdered By: Maulik Merrill on 04-29-2023 ESR Photometric method (Bld) [Velocity] 31 mm/hr 0-19 [facility] Globulin Calc (S) [Mass/Vol] Ordered By: Maulik Merrill on 04-29-2023 Globulin (S) [Mass/Vol] 3.5 g/dL [facility] Glucose [Mass/volume] in Ser um or PlasmaOrdered By: Maulik Merrill on 04-29-2023 Glucose [Mass/Vol] 94 mg/dL 70-[address] [facility] Comment on above: ADA recommended refe rence rangeRandom Glucose Reference Range is dependent on time and content of last meal. Glucose of more than 200 mg/dL in a nonstressed, ambulatory subject supports the diagnosis of Diabetes Mellitus. Hematocrit Auto (Bld) [Volum e fraction]Ordered By: Maulik Merrill on 04-29-2023 Hematocrit (Bld) [Volume fraction] 40.0 % 34.0-46.4 [facility] Hemoglobin [Mass/volume] in BloodOrdered By: Maulik Merrill on 04-29-2023 Hemoglobin (Bld) [Mass/Vol] 13.6 g/dL 11.8-15.4 [facility] Leukocytes [#/volume] correc maxime for nucleated erythrocytes in Blood by Automated counOrdered By: Maulik Merrill on 04-29-2023 WBC corrected for nucl RBC Auto (Bld) [#/Vol] 6.6 10*3/uL 3.8-11.6 [facility] Lipid Panelon 04-29-2023 Cholesterol [Mass/Vol] 212 mg/dL High 140-200 [facility] Comment on above: Order Comment: Reaso n for Exam Establishing care with new doctor, encounter for;Flank pain; Reason for Exam Flank pain;PCOS (polycystic ovarian syndrome);Hypokalemia FASTING. JKW Result Comment: Chol less than 200 mg/dl low risk Chol 201-239 mg/dl borderline risk Chol 240 mg/dl and greater high risk Performed By: #### T SH3, LIPID, CBC, [facility], CRP, CMP, URIC, ESR #### [facility] [address] [place] [address] [place] #### CINDY, RA #### [facility] , Cholesterol in HDL [Mass/Vol] 43 mg/dL Normal 23-92 [facility] Comment on above: Order Comment: Reaso n for Exam Establishing care with new doctor, encounter for;Flank pain; Reason for Exam Flank pain;PCOS (polycystic ovarian syndrome);Hypokalemia FASTING. JKW Result Comment: HDL CHOL ATP-III CLASSIFICATION Cardiovascular Risk HDL > or equal to 60 mg/dL LOW HDL < 40 mg/dL HIGH Performed By: #### T SH3, LIPID, CBC, A1C WTH eA, CRP, CMP, URIC, ESR #### [place] [address] [place] #### CINDY, RA #### [facility] , Cholesterol.total/Choles terol in HDL [Mass ratio] 4.9 {ratio} Normal <5.0 [facility] Comment on above: Order Comment: Reaso n for Exam Establishing care with new doctor, encounter for;Flank pain; Reason for Exam Flank pain;PCOS (polycystic ovarian syndrome);Hypokalemia FASTING. JKW Performed By: #### T SH3, LIPID, CBC, A1C WTH eA, CRP, CMP, URIC, ESR #### [place] [address] [place] #### CINDY, RA #### [facility] , LDL Cholesterol,Calculated 144 mg/dL High 0-100 [facility] Comment on above: Order Comment: Reaso n for Exam Establishing care with new doctor, encounter for;Flank pain; Reason for Exam Flank pain;PCOS (polycystic ovarian syndrome);Hypokalemia FASTING. JKW Result Comment: LDL ATP III CLASSIFICATION LDL less than 100 mg/dL Optimal LDL 100-129 mg/dL Near or above optimal LDL 130-159 mg/dL Borderline high LDL 160-189 mg/dL High LDL greater than 189 mg/dL Very high Performed By: #### T SH3, LIPID, CBC, A1C WTH eA, CRP, CMP, URIC, ESR #### [facility] [address] [place] [address] [place] #### CINDY, RA #### [facility] , Triglyceride w/Reflex 126 mg/dL Normal 0-149 [facility] Comment on above: Order Comment: Reaso n for Exam Establishing care with new doctor, encounter for;Flank pain; Reason for Exam Flank pain;PCOS (polycystic ovarian syndrome);Hypokalemia FASTING. JKW Result Comment: TRIG ATP III CLASSIFICATION TRIG less than 150 mg/dL Normal TRIG 150-199 mg/dL Borderline high TRIG 200-500 mg/dL High TRIG greater than 500 mg/dL Very high Standard traceable to the Center for Disease Conrtrol and Prevention (CDC) test method. Performed By: #### T SH3, LIPID, CBC, A1C WTH eA, CRP, CMP, URIC, ESR #### [address] #### CINDY, RA #### [facility] , VLDL CHOLESTEROL 25 mg/dL Normal [facility] Comment on above: Order Comment: Reaso n for Exam Establishing care with new doctor, encounter for;Flank pain; Reason for Exam Flank pain;PCOS (polycystic ovarian syndrome);Hypokalemia FASTING. JKW Performed By: #### T SH3, LIPID, CBC, A1C WTH eA, CRP, CMP, URIC, ESR #### [place] [address] [place] #### CINDY, RA #### [facility] , Lymphocytes Auto (Bld) [#/Vo l]Ordered By: Maulik Merrill on 04-29-2023 Lymphocytes (Bld) [#/Vol] 2.3 10*3/uL 1.00-4.8 [facility] Lymphocytes/100 WBC Auto (Bl d)Ordered By: Maulik Merrill on 04-29-2023 Lymphocytes/100 WBC (Bld) 35.3 % . [facility] MCH Auto (RBC) [Entitic mass ]Ordered By: Maulik Merrill on 04-29-2023 MCH (RBC) [Entitic mass] 28.3 pg 24.7-34.3 [facility] MCHC Auto (RBC) [Mass/Vol]Or dered By: Maulik Merrill on 04-29-2023 MCHC (RBC) [Mass/Vol] 34.0 g/dL 32.0-35.0 [facility] MCV Auto (RBC) [Entitic vol] Ordered By: Maulik Merrill on 04-29-2023 MCV (RBC) [Entitic vol] 83.2 fL 80-100 [facility] Monocytes Auto (Bld) [#/Vol] Ordered By: Maulik Merrill on 04-29-2023 Monocytes (Bld) [#/Vol] 0.6 10*3/uL 0.0-0.8 [facility] Monocytes/100 WBC Auto (Bld) Ordered By: Maulik Merrill on 04-29-2023 Monocytes/100 WBC (Bld) 8.4 % . [facility] Neutrophils Auto (Bld) [#/Vo l]Ordered By: Maulik Merrill on 04-29-2023 Neutrophils (Bld) [#/Vol] 3.5 10*3/uL 1.8-7.7 [facility] Neutrophils/100 WBC Auto (Bl d)Ordered By: Maulik Merrill on 04-29-2023 Neutrophils/100 WBC (Bld) 53.5 % . [facility] No Panel InformationOrdered By: Maulik Merrill on 04-29-2023 Estimated GFR (CKD-EPI) > 60.0 mL/Min [facility] Creatinine Clearance (Chem N/A [facility] Nucleated erythrocytes [Pres ence] in Blood by Automated countOrdered By: Maulik Merrill on 04-29-2023 Nucleated RBC Auto Ql (Bld) 0.1 /100{WBC} 0-0.5 [facility] Platelet mean volume Auto (B ld) [Entitic vol]Ordered By: Maulik Merrill on 04-29-2023 Platelet mean volume (Bld) [Entitic vol] 6.9 fL 6.3-10.7 [facility] Platelets Auto (Bld) [#/Vol] Ordered By: Maulik Merrill on 04-29-2023 Platelets (Bld) [#/Vol] 341 10*3/uL 150-450 [facility] Potassium [Moles/volume] in Serum or PlasmaOrdered By: Maulik Merrill on 04-29-2023 Potassium [Moles/Vol] 4.0 mmol/L 3.5-5.1 [facility] Protein [Mass/volume] in Ser um or PlasmaOrdered By: Maulik Merrill on 04-29-2023 Protein [Mass/Vol] 8.2 g/dL 6.4-8.[address] [facility] RBC Auto (Bld) [#/Vol]Ordere d By: Maulik Merrill on 04-29-2023 RBC (Bld) [#/Vol] 4.81 10*6/uL 3.60-5.00 [facility] Rheumatoid Factoron 04-29-20 Rheumatoid Factor <10.0 Normal <14.0 [facility] Comment on above: Order Comment: Reaso n for Exam Flank pain;PCOS (polycystic ovarian syndrome);Hypokalemia Result Comment: Perf ormed at: CB - [facility] [place] [address] Electrical Tryout Person: Patricio Centeno PhD, Phone: [phone] Performed By: #### T SH3, LIPID, CBC, A1C WTH eA, CRP, CMP, URIC, ESR #### [address] #### CINDY, RA #### [facility] , Serum or plasma albumin/glob ulin mass ratioOrdered By: Maulik Merrill on 04-29-2023 Albumin/Globulin [Mass ratio] 1.3 {ratio} [facility] Serum or plasma anion gap de terminationOrdered By: Maulik Merrill on 04-29-2023 Anion gap [Moles/Vol] 8.9 mmol/L 6.0-15.0 [facility] Serum or plasma high density lipoprotein (HDL) cholesterol measurementOrdered By: Maulik Merrill on 04-29-2023 Cholesterol in HDL [Mass/Vol] 43 mg/dL 23-92 [facility] Comment on above: HDL CHOL ATP-III CLA SSIFICATION Cardiovascular RiskHDL > or equal to 60 mg/dL LOWHDL < 40 mg/dL HIGH Serum or plasma total choles terol/high density lipoprotein (HDL) cholesterol mass ratOrdered By: Maulik Merrill on 04-29-2023 Cholesterol.total/Choles terol in HDL [Mass ratio] 4.9 {ratio} <5.0 [facility] Sodium [Moles/volume] in Ser um or PlasmaOrdered By: Maulik Merrill on 04-29-2023 Sodium [Moles/Vol] 138 mmol/L 136-[address] [facility] Thyroid Stimulating Hormoneo n 04-29-2023 TSH Qn 3.82 m[IU]/L Normal 0.45-5.33 [facility] Comment on above: Order Comment: Reaso n for Exam Establishing care with new doctor, encounter for;Flank pain; Reason for Exam Flank pain;PCOS (polycystic ovarian syndrome);Hypokalemia FASTING. JKW Result Comment: PERF ORMED BY: [place] [address] PATHOLOGIST AUDIO VISUAL COLLECTIONS COORDINATOR DARIANA ZENG M.D. Performed By: #### T SH3, LIPID, CBC, A1C WT eA, CRP, CMP, URIC, ESR #### [facility] [address] [place] [address] [place] #### CINDY, RA #### [facility] , Thyrotropin [Units/volume] i n Serum or PlasmaOrdered By: Maulik Merrill on 04-29-2023 TSH Qn 3.82 m[IU]/L 0.45-5.33 [facility] Triglyceride [Mass/volume] i n Serum or PlasmaOrdered By: Maulik Merrill on 04-29-2023 Triglyceride [Mass/Vol] 126 mg/dL 0-149 [facility] Comment on above: TRIG ATP III CLASSIF ICATIONTRIG less than 150 mg/dL NormalTRIG 150-199 mg/dL Borderline highTRIG 200-500 mg/dL High TRIG greater than 500 mg/dL Very highStandard traceable to the Center for Disease Conrtrol and Prevention (CDC) test method. Urate [Mass/volume] in Serum or PlasmaOrdered By: Maulik Merrill on 04-29-2023 Urate [Mass/Vol] 5.4 mg/dL 2.3-6.6 [facility] Urea nitrogen [Mass/volume] in Serum or PlasmaOrdered By: Maulik Merrill on 04-29-2023 Urea nitrogen [Mass/Vol] 8 mg/dL 7-25 [facility] Uric Acidon 04-29-2023 Urate [Mass/Vol] 5.4 mg/dL Normal 2.3-6.6 [facility] Comment on above: Order Comment: Reaso n for Exam Establishing care with new doctor, encounter for;Flank pain; Reason for Exam Flank pain;PCOS (polycystic ovarian syndrome);Hypokalemia FASTING. JKW Performed By: #### T SH3, LIPID, CBC, A1C WTH eA, CRP, CMP, URIC, ESR #### [facility] [address] #### CINDY, RA #### [facility] , WBC Auto (Bld) [#/Vol]Ordere d By: Maulik Merrill on 04-29-2023 WBC (Bld) [#/Vol] 6.6 10*3/uL 3.8-11.[address] [facility] Choriogonadotropin.beta subu nit [Units/volume] in Serum or PlasmaOrdered By: MARY DARNELL on 08-12-2022 HCG.beta subunit Qn m[IU]/mL [facility] Comment on above: Approximate Approxim ate hCG Gestational Age Range (mIU/ml) (weeks)0.2-1 5-50 1-2 50-500 2-3 100-5,000 3-4 500-10,000 4-5 1,000-50,000 5-6 10,000-100,000 6-8 15,000-200,000 8-12 10,000-100,000 HCG,Quantitativeon 3 HCG,Quantitative < 0.60 Normal [facility] Comment on above: Result Comment: Appr oximate Approximate hCG Gestational Age Range (mIU/ml) (weeks) 0.2-1 5-50 1-2 50-500 2-3 100-5,000 3-4 500-10,000 4-5 1,000-50,000 5-6 10,000-100,000 6-8 15,000-200,000 8-12 10,000-100,000 PERFORMED BY: [place] [address] PATHOLOGIST AUDIO VISUAL COLLECTIONS COORDINATOR DARIANA ZENG M.D. Performed By: #### T SH3, LIPID, CBC, A1C WTH eA, CRP, CMP, URIC, ESR #### [address] #### CINDY, RA #### [facility] , Choriogonadotropin.beta subu nit [Units/volume] in Serum or PlasmaOrdered By: MARY DARNELL on 07-29-2022 HCG.beta subunit Qn 4.27 m[IU]/mL [facility] Comment on above: Approximate Approxim ate hCG Gestational Age Range (mIU/ml) (weeks)0.2-1 5-50 1-2 50-500 2-3 100-5,000 3-4 500-10,000 4-5 1,000-50,000 5-6 10,000-100,000 6-8 15,000-200,000 8-12 10,000-100,000 HCG,Quantitativeon 3 HCG,Quantitative 4.27 m[iU]/mL Normal [facility] Comment on above: Result Comment: Appr oximate Approximate hCG Gestational Age Range (mIU/ml) (weeks) 0.2-1 5-50 1-2 50-500 2-3 100-5,000 3-4 500-10,000 4-5 1,000-50,000 5-6 10,000-100,000 6-8 15,000-200,000 8-12 10,000-100,000 PERFORMED BY: [place] [address] PATHOLOGIST AUDIO VISUAL COLLECTIONS COORDINATOR DARIANA ZENG M.D. Performed By: #### T SH3, LIPID, CBC, A1C WTH eA, CRP, CMP, URIC, ESR #### [address] #### RA CINDY #### [facility] , Choriogonadotropin.beta subu nit [Units/volume] in Serum or PlasmaOrdered By: MARY DARNELL on 07-21-2022 HCG.beta subunit Qn 9.81 m[IU]/mL [facility] Comment on above: Approximate Approxim ate hCG Gestational Age Range (mIU/ml) (weeks)0.2-1 5-50 1-2 50-500 2-3 100-5,000 3-4 500-10,000 4-5 1,000-50,000 5-6 10,000-100,000 6-8 15,000-200,000 8-12 10,000-100,000 HCG,Quantitativeon 3 HCG,Quantitative 9.81 m[iU]/mL Normal [facility] Comment on above: Order Comment: Reaso n for Exam Establishing care with new doctor, encounter for;Flank pain; Reason for Exam Flank pain;PCOS (polycystic ovarian syndrome);Hypokalemia FASTING. JKW Result Comment: Appr oximate Approximate hCG Gestational Age Range (mIU/ml) (weeks) 0.2-1 5-50 1-2 50-500 2-3 100-5,000 3-4 500-10,000 4-5 1,000-50,000 5-6 10,000-100,000 6-8 15,000-200,000 8-12 10,000-100,000 PERFORMED BY: [facility] [address] [place] [address] PATHOLOGIST AUDIO VISUAL COLLECTIONS COORDINATOR DARIANA ZENG M.D. Performed By: #### T SH3, LIPID, CBC, A1C WTH eA, CRP, CMP, URIC, ESR #### [facility] [address] [place] [address] [place] #### RA CINDY #### [facility] , Choriogonadotropin.beta subu nit [Units/volume] in Serum or PlasmaOrdered By: MARY DARNELL on 07-14-2022 HCG.beta subunit Qn 24.47 m[IU]/mL [facility] Comment on above: Approximate Approxim ate hCG Gestational Age Range (mIU/ml) (weeks)0.2-1 5-50 1-2 50-500 2-3 100-5,000 3-4 500-10,000 4-5 1,000-50,000 5-6 10,000-100,000 6-8 15,000-200,000 8-12 10,000-100,000 HCG,Quantitativeon 3 HCG,Quantitative 24.47 m[iU]/mL Normal [facility] Comment on above: Result Comment: Appr oximate Approximate hCG Gestational Age Range (mIU/ml) (weeks) 0.2-1 5-50 1-2 50-500 2-3 100-5,000 3-4 500-10,000 4-5 1,000-50,000 5-6 10,000-100,000 6-8 15,000-200,000 8-12 10,000-100,000 PERFORMED BY: [place] [address] PATHOLOGIST AUDIO VISUAL COLLECTIONS COORDINATOR DARIANA ZENG M.D. Performed By: #### T SH3, LIPID, CBC, A1C WT eA, CRP, CMP, URIC, ESR #### [facility] [address] [place] [address] #### CINDY, RA #### [facility] , Choriogonadotropin.beta subu nit [Units/volume] in Serum or PlasmaOrdered By: MARY DARNELL on 07-07-2022 HCG.beta subunit Qn 110.34 m[IU]/mL [facility] Comment on above: Approximate Approxim ate hCG Gestational Age Range (mIU/ml) (weeks)0.2-1 5-50 1-2 50-500 2-3 100-5,000 3-4 500-10,000 4-5 1,000-50,000 5-6 10,000-100,000 6-8 15,000-200,000 8-12 10,000-100,000 HCG,Quantitativeon 3 HCG,Quantitative 110.34 m[iU]/mL Normal [facility] Comment on above: Result Comment: Appr oximate Approximate hCG Gestational Age Range (mIU/ml) (weeks) 0.2-1 5-50 1-2 50-500 2-3 100-5,000 3-4 500-10,000 4-5 1,000-50,000 5-6 10,000-100,000 6-8 15,000-200,000 8-12 10,000-100,000 PERFORMED BY: [place] [address] PATHOLOGIST AUDIO VISUAL COLLECTIONS COORDINATOR DARIANA ZENG M.D. Performed By: #### T SH3, LIPID, CBC, A1C WTH eA, CRP, CMP, URIC, ESR #### [facility] [address] [place] [address] #### CINDY, RA #### [facility] , Choriogonadotropin.beta subu nit [Units/volume] in Serum or PlasmaOrdered By: MARY DARNELL on 07-04-2022 HCG.beta subunit Qn 186.42 m[IU]/mL [facility] Comment on above: Approximate Approxim ate hCG Gestational Age Range (mIU/ml) (weeks)0.2-1 5-50 1-2 50-500 2-3 100-5,000 3-4 500-10,000 4-5 1,000-50,000 5-6 10,000-100,000 6-8 15,000-200,000 8-12 10,000-100,000 HCG,Quantitativeon 3 HCG,Quantitative 186.42 m[iU]/mL Normal [facility] Comment on above: Order Comment: Reaso n for Exam Establishing care with new doctor, encounter for;Flank pain; Reason for Exam Flank pain;PCOS (polycystic ovarian syndrome);Hypokalemia FASTING. JKW Result Comment: Appr oximate Approximate hCG Gestational Age Range (mIU/ml) (weeks) 0.2-1 5-50 1-2 50-500 2-3 100-5,000 3-4 500-10,000 4-5 1,000-50,000 5-6 10,000-100,000 6-8 15,000-200,000 8-12 10,000-100,000 PERFORMED BY: [facility] [address] [place] [address] PATHOLOGIST AUDIO VISUAL COLLECTIONS COORDINATOR DARIANA ZENG M.D. Performed By: #### T SH3, LIPID, CBC, A1C WTH eA, CRP, CMP, URIC, ESR #### [facility] [address] [place] [address] [place] #### CINDY, RA #### [facility] , Albumin [Mass/volume] in Ser um or PlasmaOrdered By: MARY DARNELL on 06-30-2022 Albumin [Mass/Vol] 4.2 g/dL 3.2-5.[address] [facility] Alkaline phosphatase [Enzyma tic activity/volume] in Serum or PlasmaOrdered By: MARY DARNELL on 06-30-2022 ALP [Catalytic activity/Vol] 59 U/L 32-92 [facility] Aspartate aminotransferase [ Enzymatic activity/volume] in Serum or PlasmaOrdered By: MARY DARNELL on 06-30-2022 AST [Catalytic activity/Vol] 23 U/L 10-42 [facility] Basophils Auto (Bld) [#/Vol] Ordered By: MARYZACHARY DARNELL on 06-30-2022 Basophils (Bld) [#/Vol] 0.0 10*3/uL 0.0-0.2 [facility] Basophils/100 WBC Auto (Bld) Ordered By: MARYZACHARY DARNELL on 06-30-2022 Basophils/100 WBC (Bld) 0.4 % . [facility] Bilirubin.total [Mass/volume ] in Serum or PlasmaOrdered By: MARY DARNELL on 06-30-2022 Bilirubin [Mass/Vol] 0.6 mg/dL 0.3-1.2 [facility] Calcium [Mass/volume] in Ser um or PlasmaOrdered By: MARY DARNELL on 06-30-2022 Calcium [Mass/Vol] 9.6 mg/dL 8.2-10.[address] [facility] Carbon dioxide, total [Moles /volume] in Serum or PlasmaOrdered By: MARY DARNELL on 06-30-2022 CO2 [Moles/Vol] 22.0 mmol/L 22.0-30.0 [facility] Chloride [Moles/volume] in S [place] or PlasmaOrdered By: MARY DARNELL on 06-30-2022 Chloride [Moles/Vol] 102 mmol/L 95-114 [facility] Choriogonadotropin.beta subu nit [Units/volume] in Serum or PlasmaOrdered By: MARY DARNELL on 06-30-2022 HCG.beta subunit Qn 1055.88 m[IU]/mL [facility] Comment on above: Approximate Approxim ate hCG Gestational Age Range (mIU/ml) (weeks)0.2-1 5-50 1-2 50-500 2-3 100-5,000 3-4 500-10,000 4-5 1,000-50,000 5-6 10,000-100,000 6-8 15,000-200,000 8-12 10,000-100,000 Complete Blood Count Auto Di ffon 06-30-2022 Basophils (Bld) [#/Vol] 0.0 10*3/uL Normal 0.0-0.2 [facility] Comment on above: Order Comment: Reaso n for Exam Establishing care with new doctor, encounter for;Flank pain; Reason for Exam Flank pain;PCOS (polycystic ovarian syndrome);Hypokalemia FASTING. JKW Result Comment: PERF ORMED BY: [place] [address] PATHOLOGIST AUDIO VISUAL COLLECTIONS COORDINATOR DARIANA ZENG M.D. Performed By: #### T SH3, LIPID, CBC, A1C WTH eA, CRP, CMP, URIC, ESR #### [facility] [address] #### CINDY, RA #### [facility] , Basophils/100 WBC (Bld) 0.4 % Normal . [facility] Comment on above: Order Comment: Reaso n for Exam Establishing care with new doctor, encounter for;Flank pain; Reason for Exam Flank pain;PCOS (polycystic ovarian syndrome);Hypokalemia FASTING. JKW Performed By: #### T SH3, LIPID, CBC, A1C WTH eA, CRP, CMP, URIC, ESR #### [address] #### CINDY, RA #### [facility] , Eosinophils (Bld) [#/Vol] 0.1 10*3/uL Normal 0.0-0.45 [facility] Comment on above: Order Comment: Reaso n for Exam Establishing care with new doctor, encounter for;Flank pain; Reason for Exam Flank pain;PCOS (polycystic ovarian syndrome);Hypokalemia FASTING. JKW Performed By: #### T SH3, LIPID, CBC, A1C WTH eA, CRP, CMP, URIC, ESR #### [address] #### CINDY, RA #### [facility] , Eosinophils/100 WBC (Bld) 0.5 % Normal . [facility] Comment on above: Order Comment: Reaso n for Exam Establishing care with new doctor, encounter for;Flank pain; Reason for Exam Flank pain;PCOS (polycystic ovarian syndrome);Hypokalemia FASTING. JKW Performed By: #### T SH3, LIPID, CBC, A1C WTH eA, CRP, CMP, URIC, ESR #### [place] [address] [place] #### CINDY, RA #### [facility] , Erythrocyte distribution width (RBC) [Ratio] 14.6 % Normal 11.9-15.3 [facility] Comment on above: Order Comment: Reaso n for Exam Establishing care with new doctor, encounter for;Flank pain; Reason for Exam Flank pain;PCOS (polycystic ovarian syndrome);Hypokalemia FASTING. JKW Performed By: #### T SH3, LIPID, CBC, A1C WTH eA, CRP, CMP, URIC, ESR #### [place] [address] [place] #### CNIDY, RA #### [facility] , Hematocrit (Bld) [Volume fraction] 39.2 % Normal 34.0-46.4 [facility] Comment on above: Order Comment: Reaso n for Exam Establishing care with new doctor, encounter for;Flank pain; Reason for Exam Flank pain;PCOS (polycystic ovarian syndrome);Hypokalemia FASTING. JKW Performed By: #### T SH3, LIPID, CBC, A1C WTH eA, CRP, CMP, URIC, ESR #### [place] [address] [place] #### CINDY, RA #### [facility] , Hemoglobin (Bld) [Mass/Vol] 13.0 g/dL Normal 11.8-15.4 [facility] Comment on above: Order Comment: Reaso n for Exam Establishing care with new doctor, encounter for;Flank pain; Reason for Exam Flank pain;PCOS (polycystic ovarian syndrome);Hypokalemia FASTING. JKW Performed By: #### T SH3, LIPID, CBC, A1C WTH eA, CRP, CMP, URIC, ESR #### [place] [address] [place] #### CINDY, RA #### [facility] , Lymphocytes (Bld) [#/Vol] 1.9 10*3/uL Normal 1.00-4.8 [facility] Comment on above: Order Comment: Reaso n for Exam Establishing care with new doctor, encounter for;Flank pain; Reason for Exam Flank pain;PCOS (polycystic ovarian syndrome);Hypokalemia FASTING. JKW Performed By: #### T SH3, LIPID, CBC, A1C WTH eA, CRP, CMP, URIC, ESR #### [place] [address] [place] #### CINDY, RA #### [facility] , Lymphocytes/100 WBC (Bld) 17.6 % Normal . [facility] Comment on above: Order Comment: Reaso n for Exam Establishing care with new doctor, encounter for;Flank pain; Reason for Exam Flank pain;PCOS (polycystic ovarian syndrome);Hypokalemia FASTING. JKW Performed By: #### T SH3, LIPID, CBC, A1C WTH eA, CRP, CMP, URIC, ESR #### [place] [address] [place] #### CINDY, RA #### [facility] , MCH (RBC) [Entitic mass] 27.7 pg Normal 24.7-34.3 [facility] Comment on above: Order Comment: Reaso n for Exam Establishing care with new doctor, encounter for;Flank pain; Reason for Exam Flank pain;PCOS (polycystic ovarian syndrome);Hypokalemia FASTING. JKW Performed By: #### T SH3, LIPID, CBC, A1C WTH eA, CRP, CMP, URIC, ESR #### [facility] [address] [place] [address] [place] #### CINDY, RA #### [facility] , MCV (RBC) [Entitic vol] 83.6 fL Normal 80-100 [facility] Comment on above: Order Comment: Reaso n for Exam Establishing care with new doctor, encounter for;Flank pain; Reason for Exam Flank pain;PCOS (polycystic ovarian syndrome);Hypokalemia FASTING. JKW Performed By: #### T SH3, LIPID, CBC, A1C WTH eA, CRP, CMP, URIC, ESR #### [place] [address] [place] #### CINDY, RA #### [facility] , Mean Corpuscular HGB Conc 33.2 g/dL Normal 32.0-35.0 [facility] Comment on above: Order Comment: Reaso n for Exam Establishing care with new doctor, encounter for;Flank pain; Reason for Exam Flank pain;PCOS (polycystic ovarian syndrome);Hypokalemia FASTING. JKW Performed By: #### T SH3, LIPID, CBC, A1C WTH eA, CRP, CMP, URIC, ESR #### [facility] [address] [place] [address] [place] #### CINDY, RA #### [facility] , Monocytes (Bld) [#/Vol] 0.7 10*3/uL Normal 0.0-0.8 [facility] Comment on above: Order Comment: Reaso n for Exam Establishing care with new doctor, encounter for;Flank pain; Reason for Exam Flank pain;PCOS (polycystic ovarian syndrome);Hypokalemia FASTING. JKW Performed By: #### T SH3, LIPID, CBC, A1C WTH eA, CRP, CMP, URIC, ESR #### [facility] [address] [place] [address] [place] #### CINDY, RA #### [facility] , Monocytes/100 WBC (Bld) 6.4 % Normal . [facility] Comment on above: Order Comment: Reaso n for Exam Establishing care with new doctor, encounter for;Flank pain; Reason for Exam Flank pain;PCOS (polycystic ovarian syndrome);Hypokalemia FASTING. JKW Performed By: #### T SH3, LIPID, CBC, A1C WTH eA, CRP, CMP, URIC, ESR #### [place] [address] [place] #### CINDY, RA #### [facility] , Neutrophils (Bld) [#/Vol] 8.0 10*3/uL High 1.8-7.7 [facility] Comment on above: Order Comment: Reaso n for Exam Establishing care with new doctor, encounter for;Flank pain; Reason for Exam Flank pain;PCOS (polycystic ovarian syndrome);Hypokalemia FASTING. JKW Performed By: #### T SH3, LIPID, CBC, A1C WTH eA, CRP, CMP, URIC, ESR #### [address] #### CINDY, RA #### [facility] , Neutrophils/100 WBC (Bld) 75.1 % Normal . [facility] Comment on above: Order Comment: Reaso n for Exam Establishing care with new doctor, encounter for;Flank pain; Reason for Exam Flank pain;PCOS (polycystic ovarian syndrome);Hypokalemia FASTING. JKW Performed By: #### T SH3, LIPID, CBC, A1C WTH eA, CRP, CMP, URIC, ESR #### [place] [address] [place] #### CINDY, RA #### [facility] , NRBC% 0.0 /100{WBC} Normal 0-0.5 [facility] Comment on above: Order Comment: Reaso n for Exam Establishing care with new doctor, encounter for;Flank pain; Reason for Exam Flank pain;PCOS (polycystic ovarian syndrome);Hypokalemia FASTING. JKW Performed By: #### T SH3, LIPID, CBC, A1C WTH eA, CRP, CMP, URIC, ESR #### [place] [address] [place] #### CINDY, RA #### [facility] , Platelet mean volume (Bld) [Entitic vol] 6.6 fL Normal 6.3-10.7 [facility] Comment on above: Order Comment: Reaso n for Exam Establishing care with new doctor, encounter for;Flank pain; Reason for Exam Flank pain;PCOS (polycystic ovarian syndrome);Hypokalemia FASTING. JKW Performed By: #### T SH3, LIPID, CBC, A1C WTH eA, CRP, CMP, URIC, ESR #### [place] [address] [place] #### CINDY, RA #### [facility] , Platelets (Bld) [#/Vol] 375 10*3/uL Normal 150-450 [facility] Comment on above: Order Comment: Reaso n for Exam Establishing care with new doctor, encounter for;Flank pain; Reason for Exam Flank pain;PCOS (polycystic ovarian syndrome);Hypokalemia FASTING. JKW Performed By: #### T SH3, LIPID, CBC, A1C WTH eA, CRP, CMP, URIC, ESR #### [place] [address] [place] #### CINDY, RA #### [facility] , RBC (Bld) [#/Vol] 4.69 10*6/uL Normal 3.60-5.00 [facility] Comment on above: Order Comment: Reaso n for Exam Establishing care with new doctor, encounter for;Flank pain; Reason for Exam Flank pain;PCOS (polycystic ovarian syndrome);Hypokalemia FASTING. JKW Performed By: #### T SH3, LIPID, CBC, A1C WTH eA, CRP, CMP, URIC, ESR #### [facility] [address] [place] [address] [place] #### CINDY, RA #### [facility] , WBC (Bld) [#/Vol] 10.7 10*3/uL Normal 3.8-11.6 [facility] Comment on above: Order Comment: Reaso n for Exam Establishing care with new doctor, encounter for;Flank pain; Reason for Exam Flank pain;PCOS (polycystic ovarian syndrome);Hypokalemia FASTING. JKW Performed By: #### T SH3, LIPID, CBC, A1C WTH eA, CRP, CMP, URIC, ESR #### [facility] [address] [place] [address] #### CINDY, RA #### [facility] , Comprehensive Metabolic Pane jhon 06-30-2022 Albumin [Mass/Vol] 4.2 g/dL Normal 3.2-5.[address] [facility] Comment on above: Order Comment: Reaso n for Exam Establishing care with new doctor, encounter for;Flank pain; Reason for Exam Flank pain;PCOS (polycystic ovarian syndrome);Hypokalemia FASTING. JKW Performed By: #### T SH3, LIPID, CBC, A1C WTH eA, CRP, CMP, URIC, ESR #### [address] #### CINDY, RA #### [facility] , Albumin/Globulin [Mass ratio] 1.1 {ratio} Normal [facility] Comment on above: Order Comment: Reaso n for Exam Establishing care with new doctor, encounter for;Flank pain; Reason for Exam Flank pain;PCOS (polycystic ovarian syndrome);Hypokalemia FASTING. JKW Performed By: #### T SH3, LIPID, CBC, A1C WTH eA, CRP, CMP, URIC, ESR #### [place] [address] [place] #### CINDY, RA #### [facility] , ALP [Catalytic activity/Vol] 59 U/L Normal 32-92 [facility] Comment on above: Order Comment: Reaso n for Exam Establishing care with new doctor, encounter for;Flank pain; Reason for Exam Flank pain;PCOS (polycystic ovarian syndrome);Hypokalemia FASTING. JKW Performed By: #### T SH3, LIPID, CBC, A1C WTH eA, CRP, CMP, URIC, ESR #### [address] #### CINDY, RA #### [facility] , ALT [Catalytic activity/Vol] 31 U/L Normal 10-60 [facility] Comment on above: Order Comment: Reaso n for Exam Establishing care with new doctor, encounter for;Flank pain; Reason for Exam Flank pain;PCOS (polycystic ovarian syndrome);Hypokalemia FASTING. JKW Performed By: #### T SH3, LIPID, CBC, A1C WTH eA, CRP, CMP, URIC, ESR #### [place] [address] [place] #### CINDY, RA #### [facility] , Anion gap [Moles/Vol] 13.7 mmol/L Normal 6.0-15.0 [facility] Comment on above: Order Comment: Reaso n for Exam Establishing care with new doctor, encounter for;Flank pain; Reason for Exam Flank pain;PCOS (polycystic ovarian syndrome);Hypokalemia FASTING. JKW Performed By: #### T SH3, LIPID, CBC, A1C WTH eA, CRP, CMP, URIC, ESR #### [place] [address] [place] #### CINDY, RA #### [facility] , AST [Catalytic activity/Vol] 23 U/L Normal 10-42 [facility] Comment on above: Order Comment: Reaso n for Exam Establishing care with new doctor, encounter for;Flank pain; Reason for Exam Flank pain;PCOS (polycystic ovarian syndrome);Hypokalemia FASTING. JKW Performed By: #### T SH3, LIPID, CBC, A1C WTH eA, CRP, CMP, URIC, ESR #### [place] [id number] [place] #### CINDY, RA #### [facility] , Bilirubin [Mass/Vol] 0.6 mg/dL Normal 0.3-1.2 [facility] Comment on above: Order Comment: Reaso n for Exam Establishing care with new doctor, encounter for;Flank pain; Reason for Exam Flank pain;PCOS (polycystic ovarian syndrome);Hypokalemia FASTING. JKW Performed By: #### T SH3, LIPID, CBC, A1C WTH eA, CRP, CMP, URIC, ESR #### [facility] [address] [place] [address] [place] #### CINDY, RA #### [facility] , Calcium [Mass/Vol] 9.6 mg/dL Normal 8.2-10.[address] [facility] Comment on above: Order Comment: Reaso n for Exam Establishing care with new doctor, encounter for;Flank pain; Reason for Exam Flank pain;PCOS (polycystic ovarian syndrome);Hypokalemia FASTING. JKW Performed By: #### T SH3, LIPID, CBC, A1C WTH eA, CRP, CMP, URIC, ESR #### [facility] [address] [place] [address] [place] #### CINDY, RA #### [facility] , Chloride [Moles/Vol] 102 mmol/L Normal 95-114 [facility] Comment on above: Order Comment: Reaso n for Exam Establishing care with new doctor, encounter for;Flank pain; Reason for Exam Flank pain;PCOS (polycystic ovarian syndrome);Hypokalemia FASTING. JKW Performed By: #### T SH3, LIPID, CBC, A1C WTH eA, CRP, CMP, URIC, ESR #### [facility] [address] [place] [address] [place] #### CINDY, RA #### [facility] , CO2 [Moles/Vol] 22.0 mmol/L Normal 22.0-30.0 [facility] Comment on above: Order Comment: Reaso n for Exam Establishing care with new doctor, encounter for;Flank pain; Reason for Exam Flank pain;PCOS (polycystic ovarian syndrome);Hypokalemia FASTING. JKW Performed By: #### T SH3, LIPID, CBC, A1C WTH eA, CRP, CMP, URIC, ESR #### [place] [address] [place] #### CINDY, RA #### [facility] , Creatinine [Mass/Vol] 0.77 mg/dL Normal 0.44-1.03 [facility] Comment on above: Order Comment: Reaso n for Exam Establishing care with new doctor, encounter for;Flank pain; Reason for Exam Flank pain;PCOS (polycystic ovarian syndrome);Hypokalemia FASTING. JKW Performed By: #### T SH3, LIPID, CBC, A1C WTH eA, CRP, CMP, URIC, ESR #### [place] [address] [place] #### CINDY, RA #### [facility] , Estimated GFR ( [place] > 60 [facility] Comment on above: Order Comment: Reaso n for Exam Establishing care with new doctor, encounter for;Flank pain; Reason for Exam Flank pain;PCOS (polycystic ovarian syndrome);Hypokalemia FASTING. JKW Result Comment: GFR estimated reference range: According to KDOQI guidelines, <60 ml/min/1.73m2 is sufficient to diagnose a patient with chronic kidney disease. Performed By: #### T SH3, LIPID, CBC, A1C WTH eA, CRP, CMP, URIC, ESR #### [place] [address] [place] #### CINDY, RA #### [facility] , Estimated GFR (Non- Am > 60 [facility] Comment on above: Order Comment: Reaso n for Exam Establishing care with new doctor, encounter for;Flank pain; Reason for Exam Flank pain;PCOS (polycystic ovarian syndrome);Hypokalemia FASTING. JKW Performed By: #### T SH3, LIPID, CBC, A1C WTH eA, CRP, CMP, URIC, ESR #### [place] [address] [place] #### CINDY, RA #### [facility] , Globulin (S) [Mass/Vol] 3.8 g/dL Normal [facility] Comment on above: Order Comment: Reaso n for Exam Establishing care with new doctor, encounter for;Flank pain; Reason for Exam Flank pain;PCOS (polycystic ovarian syndrome);Hypokalemia FASTING. JKW Performed By: #### T SH3, LIPID, CBC, A1C WTH eA, CRP, CMP, URIC, ESR #### [facility] [address] [place] [address] [place] #### CINDY, RA #### [facility] , Glucose [Mass/Vol] 116 mg/dL High 70-[address] [facility] Comment on above: Order Comment: Reaso n for Exam Establishing care with new doctor, encounter for;Flank pain; Reason for Exam Flank pain;PCOS (polycystic ovarian syndrome);Hypokalemia FASTING. JKW Result Comment: [facility] Glucose Reference Range is dependent on time and content of last meal. Glucose of more than 200 mg/dL in a nonstressed, ambulatory subject supports the diagnosis of Diabetes Mellitus. ADA recommended reference range Performed By: #### T SH3, LIPID, CBC, A1C WTH eA, CRP, CMP, URIC, ESR #### [facility] [address] [place] [address] [place] #### CINDY, RA #### [facility] , Potassium [Moles/Vol] 3.7 mmol/L Normal 3.5-5.1 [facility] Comment on above: Order Comment: Reaso n for Exam Establishing care with new doctor, encounter for;Flank pain; Reason for Exam Flank pain;PCOS (polycystic ovarian syndrome);Hypokalemia FASTING. JKW Performed By: #### T SH3, LIPID, CBC, A1C WTH eA, CRP, CMP, URIC, ESR #### [facility] [address] [place] [address] [place] #### CINDY, RA #### [facility] , Protein [Mass/Vol] 8.0 g/dL High 6.1-7.[address] [facility] Comment on above: Order Comment: Reaso n for Exam Establishing care with new doctor, encounter for;Flank pain; Reason for Exam Flank pain;PCOS (polycystic ovarian syndrome);Hypokalemia FASTING. JKW Performed By: #### T SH3, LIPID, CBC, A1C WTH eA, CRP, CMP, URIC, ESR #### [place] [address] [place] #### CINDY, RA #### [facility] , Sodium [Moles/Vol] 134 mmol/L Low 136-[address] [facility] Comment on above: Order Comment: Reaso n for Exam Establishing care with new doctor, encounter for;Flank pain; Reason for Exam Flank pain;PCOS (polycystic ovarian syndrome);Hypokalemia FASTING. JKW Performed By: #### T SH3, LIPID, CBC, A1C WTH eA, CRP, CMP, URIC, ESR #### [place] [address] [place] #### CINDY, RA #### [facility] , Urea nitrogen [Mass/Vol] 4 mg/dL Low 9-23 [facility] Comment on above: Order Comment: Reaso n for Exam Establishing care with new doctor, encounter for;Flank pain; Reason for Exam Flank pain;PCOS (polycystic ovarian syndrome);Hypokalemia FASTING. JKW Performed By: #### T SH3, LIPID, CBC, A1C WTH eA, CRP, CMP, URIC, ESR #### [place] [address] [place] #### CINDY, RA #### [facility] , Creatinine and Glomerular fi ltration rate.predicted panel (S/P/Bld)Ordered By: MARY DARNELL on 06-30-2022 Creatinine [Mass/Vol] 0.77 mg/dL 0.44-1.03 [facility] Eosinophils Auto (Bld) [#/Vo l]Ordered By: MARY DARNELL on 06-30-2022 Eosinophils (Bld) [#/Vol] 0.1 10*3/uL 0.0-0.45 [facility] Eosinophils/100 WBC Auto (Bl d)Ordered By: MARY DARNELL on 06-30-2022 Eosinophils/100 WBC (Bld) 0.5 % . [facility] Erythrocyte distribution wid th Auto (RBC) [Ratio]Ordered By: MARY DARNELL on 06-30-2022 Erythrocyte distribution width (RBC) [Ratio] 14.6 % 11.9-15.3 [facility] Estimated glomerular filtrat ion rate (GFR) non- AmericanOrdered By: MARY DARNELL on 06-30-2022 GFR/1.73 sq M.predicted among non-blacks MDRD (S/P/Bld) [Vol rate/Area] > 60 mL/Min [facility] Globulin Calc (S) [Mass/Vol] Ordered By: MARY DARNELL on 06-30-2022 Globulin (S) [Mass/Vol] 3.8 g/dL [facility] Glucose [Mass/volume] in Ser um or PlasmaOrdered By: MARY DARNELL on 06-30-2022 Glucose [Mass/Vol] 116 mg/dL 70-[address] [facility] Comment on above: ADA recommended refe rence rangeRandom Glucose Reference Range is dependent on time and content of last meal. Glucose of more than 200 mg/dL in a nonstressed, ambulatory subject supports the diagnosis of Diabetes Mellitus. HCG,Quantitativeon 3 HCG,Quantitative 1055.88 m[iU]/mL Normal [facility] Comment on above: Order Comment: Reaso n for Exam Establishing care with new doctor, encounter for;Flank pain; Reason for Exam Flank pain;PCOS (polycystic ovarian syndrome);Hypokalemia FASTING. JKW Result Comment: Appr oximate Approximate hCG Gestational Age Range (mIU/ml) (weeks) 0.2-1 5-50 1-2 50-500 2-3 100-5,000 3-4 500-10,000 4-5 1,000-50,000 5-6 10,000-100,000 6-8 15,000-200,000 8-12 10,000-100,000 PERFORMED BY: [place] [address] [place] [address] PATHOLOGIST AUDIO VISUAL COLLECTIONS COORDINATOR DARIANA ZENG M.D. Performed By: #### T SH3, LIPID, CBC, A1C WTH eA, CRP, CMP, URIC, ESR #### [address] #### CINDY, RA #### [facility] , Hematocrit Auto (Bld) [Volum e fraction]Ordered By: MARY DARNELL on 06-30-2022 Hematocrit (Bld) [Volume fraction] 39.2 % 34.0-46.4 [facility] Hemoglobin [Mass/volume] in BloodOrdered By: MARY DARNELL on 06-30-2022 Hemoglobin (Bld) [Mass/Vol] 13.0 g/dL 11.8-15.4 [facility] Leukocytes [#/volume] correc maxime for nucleated erythrocytes in Blood by Automated counOrdered By: MARY DARNELL on 06-30-2022 WBC corrected for nucl RBC Auto (Bld) [#/Vol] 10.7 10*3/uL 3.8-11.6 [facility] Lymphocytes Auto (Bld) [#/Vo l]Ordered By: MARY DARNELL on 06-30-2022 Lymphocytes (Bld) [#/Vol] 1.9 10*3/uL 1.00-4.8 [facility] Lymphocytes/100 WBC Auto (Bl d)Ordered By: MARY DARNELL on 06-30-2022 Lymphocytes/100 WBC (Bld) 17.6 % . [facility] MCH Auto (RBC) [Entitic mass ]Ordered By: MARY DARNELL on 06-30-2022 MCH (RBC) [Entitic mass] 27.7 pg 24.7-34.3 [facility] MCHC Auto (RBC) [Mass/Vol]Or dered By: MARY DARNELL on 06-30-2022 MCHC (RBC) [Mass/Vol] 33.2 g/dL 32.0-35.0 [facility] MCV Auto (RBC) [Entitic vol] Ordered By: MARY DARNELL on 06-30-2022 MCV (RBC) [Entitic vol] 83.6 fL 80-100 [facility] Monocytes Auto (Bld) [#/Vol] Ordered By: MARY DARNELL on 06-30-2022 Monocytes (Bld) [#/Vol] 0.7 10*3/uL 0.0-0.8 [facility] Monocytes/100 WBC Auto (Bld) Ordered By: MARY DARNELL on 06-30-2022 Monocytes/100 WBC (Bld) 6.4 % . [facility] Neutrophils Auto (Bld) [#/Vo l]Ordered By: MARY DARNELL on 06-30-2022 Neutrophils (Bld) [#/Vol] 8.0 10*3/uL 1.8-7.7 [facility] Neutrophils/100 WBC Auto (Bl d)Ordered By: MARY DARNELL on 06-30-2022 Neutrophils/100 WBC (Bld) 75.1 % . [facility] No Panel InformationOrdered By: MARY DARNELL on 06-30-2022 Estimated GFR () > 60 mL/Min [facility] Comment on above: GFR estimated refere nce range: According to KDOQI guidelines, <60 ml/min/1.73m2 is sufficient to diagnose a patient with chronic kidney disease. Pharmacy Creatinine Clearance (Chem N/A [facility] Nucleated erythrocytes [Pres ence] in Blood by Automated countOrdered By: MARY DARNELL on 06-30-2022 Nucleated RBC Auto Ql (Bld) 0.0 /100{WBC} 0-0.5 [facility] Platelet mean volume Auto (B ld) [Entitic vol]Ordered By: MARY DARNELL on 06-30-2022 Platelet mean volume (Bld) [Entitic vol] 6.6 fL 6.3-10.7 [facility] Platelets Auto (Bld) [#/Vol] Ordered By: MARY DARNELL on 06-30-2022 Platelets (Bld) [#/Vol] 375 10*3/uL 150-450 [facility] Potassium [Moles/volume] in Serum or PlasmaOrdered By: MARY DARNELL on 06-30-2022 Potassium [Moles/Vol] 3.7 mmol/L 3.5-5.1 [facility] Protein [Mass/volume] in Ser um or PlasmaOrdered By: MARY DARNELL on 06-30-2022 Protein [Mass/Vol] 8.0 g/dL 6.1-7.[address] [facility] RBC Auto (Bld) [#/Vol]Ordere d By: MARY DARNELL on 06-30-2022 RBC (Bld) [#/Vol] 4.69 10*6/uL 3.60-5.00 [facility] Serum or plasma alanine estevez otransferase measurement without P-5'-P (enzymatic activiOrdered By: MARY DARNELL on 06-30-2022 ALT No additional P-5'-P [Catalytic activity/Vol] 31 U/L 10-60 [facility] Serum or plasma albumin/glob ulin mass ratioOrdered By: MARY DARNELL on 06-30-2022 Albumin/Globulin [Mass ratio] 1.1 {ratio} [facility] Serum or plasma anion gap de terminationOrdered By: MARY DARNELL on 06-30-2022 Anion gap [Moles/Vol] 13.7 mmol/L 6.0-15.0 [facility] Sodium [Moles/volume] in Ser um or PlasmaOrdered By: MARY DARNELL on 06-30-2022 Sodium [Moles/Vol] 134 mmol/L 136-[address] [facility] Urea nitrogen [Mass/volume] in Serum or PlasmaOrdered By: MARY DARNELL on 06-30-2022 Urea nitrogen [Mass/Vol] 4 mg/dL 9-23 [facility] WBC Auto (Bld) [#/Vol]Ordere d By: MARY DARNELL on 06-30-2022 WBC (Bld) [#/Vol] 10.7 10*3/uL 3.8-11.6 [facility] Choriogonadotropin.beta subu nit [Units/volume] in Serum or PlasmaOrdered By: Andrew Sorenson on 06-27-2022 HCG.beta subunit Qn 2694.00 m[IU]/mL [facility] [facility] Comment on above: Approximate Approxim ate hCG Gestational Age Range (mIU/ml) (weeks)0.2-1 5-50 1-2 50-500 2-3 100-5,000 3-4 500-10,000 4-5 1,000-50,000 5-6 10,000-100,000 6-8 15,000-200,000 8-12 10,000-100,000 HCG,Quantitativeon HCG,Quantitative 2694.00 m[iU]/mL Normal [facility] Comment on above: Order Comment: Reaso n for Exam Establishing care with new doctor, encounter for;Flank pain; Reason for Exam Flank pain;PCOS (polycystic ovarian syndrome);Hypokalemia FASTING. JKW Result Comment: Appr oximate Approximate hCG Gestational Age Range (mIU/ml) (weeks) 0.2-1 5-50 1-2 50-500 2-3 100-5,000 3-4 500-10,000 4-5 1,000-50,000 5-6 10,000-100,000 6-8 15,000-200,000 8-12 10,000-100,000 PERFORMED BY: [place] [address] PATHOLOGIST AUDIO VISUAL COLLECTIONS COORDINATOR DARIANA ZENG M.D. Performed By: #### T SH3, LIPID, CBC, A1C WTH eA, CRP, CMP, URIC, ESR #### [address] #### CINDY RA #### [facility] , Basic Metabolic Panelon 06-04 Anion gap [Moles/Vol] 13.5 mmol/L Normal 6.0-15.0 [facility] Comment on above: Performed By: #### T SH3, LIPID, CBC, A1C WTH eA, CRP, CMP, URIC, ESR #### [address] #### CINDY, RA #### [facility] , Calcium [Mass/Vol] 9.3 mg/dL Normal 8.2-10.[address] [facility] Comment on above: Performed By: #### T SH3, LIPID, CBC, A1C WTH eA, CRP, CMP, URIC, ESR #### [address] #### CINDY, RA #### [facility] , Chloride [Moles/Vol] 102 mmol/L Normal 95-114 [facility] Comment on above: Performed By: #### T SH3, LIPID, CBC, A1C WTH eA, CRP, CMP, URIC, ESR #### [facility] [address] [place] [address] #### CINDY, RA #### [facility] , CO2 [Moles/Vol] 21.8 mmol/L Low 22.0-30.0 [facility] Comment on above: Performed By: #### T SH3, LIPID, CBC, A1C WTH eA, CRP, CMP, URIC, ESR #### [facility] [address] [place] [address] #### CINDY, RA #### [facility] , Creatinine [Mass/Vol] 0.79 mg/dL Normal 0.44-1.03 [facility] Comment on above: Performed By: #### T SH3, LIPID, CBC, A1C WTH eA, CRP, CMP, URIC, ESR #### [facility] [address] [place] [address] [place] #### CINDY, RA #### [facility] , Creatinine Clr Calc Pharmacy 105.45 [facility] Comment on above: Performed By: #### T SH3, LIPID, CBC, A1C WTH eA, CRP, CMP, URIC, ESR #### [facility] [address] [place] [address] [place] #### CINDY, RA #### [facility] , Estimated GFR ( [place] > 60 [facility] Comment on above: Result Comment: GFR estimated reference range: According to KDOQI guidelines, <60 ml/min/1.73m2 is sufficient to diagnose a patient with chronic kidney disease. Performed By: #### T SH3, LIPID, CBC, A1C WTH eA, CRP, CMP, URIC, ESR #### [facility] [address] [place] [address] [place] #### CINDY, RA #### [facility] , Estimated GFR (Non- Am > 60 Normal [facility] Comment on above: Performed By: #### T SH3, LIPID, CBC, A1C WTH eA, CRP, CMP, URIC, ESR #### [facility] [address] [place] [address] [place] #### CINDY, RA #### [facility] , Glucose [Mass/Vol] 101 mg/dL High 70-[address] [facility] Comment on above: Result Comment: [facility] Glucose Reference Range is dependent on time and content of last meal. Glucose of more than 200 mg/dL in a nonstressed, ambulatory subject supports the diagnosis of Diabetes Mellitus. ADA recommended reference range Performed By: #### T SH3, LIPID, CBC, A1C WTH eA, CRP, CMP, URIC, ESR #### [facility] [address] [place] [address] [place] #### CINDY, RA #### [facility] , Potassium [Moles/Vol] 3.3 mmol/L Low 3.5-5.1 [facility] Comment on above: Performed By: #### T SH3, LIPID, CBC, A1C WTH eA, CRP, CMP, URIC, ESR #### [facility] [address] [place] [address] [place] #### CINDY, RA #### [facility] , Sodium [Moles/Vol] 134 mmol/L Low 136-[address] [facility] Comment on above: Performed By: #### T SH3, LIPID, CBC, A1C WTH eA, CRP, CMP, URIC, ESR #### [facility] [address] [place] [address] [place] #### CINDY, RA #### [facility] , Urea nitrogen [Mass/Vol] 4 mg/dL Low 9-23 [facility] Comment on above: Performed By: #### T SH3, LIPID, CBC, A1C WTH eA, CRP, CMP, URIC, ESR #### [facility] [address] [id number] [facility] #### CINDY, RA #### [facility] , Basophils Auto (Bld) [#/Vol] Ordered By: Andrew Sorenson on 06-25-2022 Basophils (Bld) [#/Vol] 0.1 10*3/uL 0.0-0.2 [facility] Basophils/100 WBC Auto (Bld) Ordered By: Andrew Sorenson on 06-25-2022 Basophils/100 WBC (Bld) 0.6 % . [facility] Bilirubin Test strip Ql (U)O rdered By: Andrew Sorenson on 06-25-2022 Bilirubin Ql (U) Negative Negative [facility] Calcium [Mass/volume] in Ser um or PlasmaOrdered By: Andrew Sorenson on 06-25-2022 Calcium [Mass/Vol] 9.3 mg/dL 8.2-10.[address] [facility] Carbon dioxide, total [Moles /volume] in Serum or PlasmaOrdered By: Andrew Sorenson on 06-25-2022 CO2 [Moles/Vol] 21.8 mmol/L 22.0-30.0 [facility] Chloride [Moles/volume] in S nabila or PlasmaOrdered By: Andrew Sorenson on 06-25-2022 Chloride [Moles/Vol] 102 mmol/L 95-114 [facility] Choriogonadotropin.beta subu nit [Units/volume] in Serum or PlasmaOrdered By: Andrew Sorenson on 06-25-2022 HCG.beta subunit Qn 8.00 m[IU]/mL [facility] Comment on above: Approximate Approxim ate hCG Gestational Age Range (mIU/ml) (weeks)0.2-1 5-50 1-2 50-500 2-3 100-5,000 3-4 500-10,000 4-5 1,000-50,000 5-6 10,000-100,000 6-8 15,000-200,000 8-12 10,000-100,000 Color Auto (U)Ordered By: Haley Sorenson on 06-25-2022 Color (U) Yellow Yellow [facility] Complete Blood Count Auto Di ffon 06-25-2022 Basophils (Bld) [#/Vol] 0.1 10*3/uL Normal 0.0-0.2 [facility] Comment on above: Result Comment: PERF ORMED BY: [place] [address] PATHOLOGIST AUDIO VISUAL COLLECTIONS COORDINATOR DARIANA ZENG M.D. Performed By: #### T SH3, LIPID, CBC, A1C WTH eA, CRP, CMP, URIC, ESR #### [facility] [address] [place] [address] #### CINDY, RA #### [facility] , Basophils/100 WBC (Bld) 0.6 % Normal . [facility] Comment on above: Performed By: #### T SH3, LIPID, CBC, A1C WTH eA, CRP, CMP, URIC, ESR #### [address] #### CINDY, RA #### [facility] , Eosinophils (Bld) [#/Vol] 0.1 10*3/uL Normal 0.0-0.45 [facility] Comment on above: Performed By: #### T SH3, LIPID, CBC, A1C WTH eA, CRP, CMP, URIC, ESR #### [place] [address] [place] #### CINDY, RA #### [facility] , Eosinophils/100 WBC (Bld) 1.4 % Normal . [facility] Comment on above: Performed By: #### T SH3, LIPID, CBC, A1C WTH eA, CRP, CMP, URIC, ESR #### [place] [address] [place] #### CINDY, RA #### [facility] , Erythrocyte distribution width (RBC) [Ratio] 14.6 % Normal 11.9-15.3 [facility] Comment on above: Performed By: #### T SH3, LIPID, CBC, A1C WTH eA, CRP, CMP, URIC, ESR #### [place] [address] [place] #### CINDY, RA #### [facility] , Hematocrit (Bld) [Volume fraction] 36.2 % Normal 34.0-46.4 [facility] Comment on above: Performed By: #### T SH3, LIPID, CBC, A1C WTH eA, CRP, CMP, URIC, ESR #### [facility] [address] [place] [address] #### CINDY, RA #### [facility] , Hemoglobin (Bld) [Mass/Vol] 12.2 g/dL Normal 11.8-15.4 [facility] Comment on above: Performed By: #### T SH3, LIPID, CBC, A1C WTH eA, CRP, CMP, URIC, ESR #### [address] #### CINDY, RA #### [facility] , Lymphocytes (Bld) [#/Vol] 2.6 10*3/uL Normal 1.00-4.8 [facility] Comment on above: Performed By: #### T SH3, LIPID, CBC, A1C WTH eA, CRP, CMP, URIC, ESR #### [address] #### CINDY, RA #### [facility] , Lymphocytes/100 WBC (Bld) 26.1 % Normal . [facility] Comment on above: Performed By: #### T SH3, LIPID, CBC, A1C WTH eA, CRP, CMP, URIC, ESR #### [place] [address] [place] #### CINDY, RA #### [facility] , MCH (RBC) [Entitic mass] 28.2 pg Normal 24.7-34.3 [facility] Comment on above: Performed By: #### T SH3, LIPID, CBC, A1C WTH eA, CRP, CMP, URIC, ESR #### [place] [address] [place] #### CINDY, RA #### [facility] , MCV (RBC) [Entitic vol] 83.8 fL Normal 80-100 [facility] Comment on above: Performed By: #### T SH3, LIPID, CBC, A1C WTH eA, CRP, CMP, URIC, ESR #### [facility] [address] [place] [address] #### CINDY, RA #### [facility] , Mean Corpuscular HGB Conc 33.6 g/dL Normal 32.0-35.0 [facility] Comment on above: Performed By: #### T SH3, LIPID, CBC, A1C WTH eA, CRP, CMP, URIC, ESR #### [facility] [address] [place] [address] #### CINDY, RA #### [facility] , Monocytes (Bld) [#/Vol] 0.8 10*3/uL Normal 0.0-0.8 [facility] Comment on above: Performed By: #### T SH3, LIPID, CBC, A1C WTH eA, CRP, CMP, URIC, ESR #### [facility] [address] [place] [address] [place] #### CINDY, RA #### [facility] , Monocytes/100 WBC (Bld) 17.10 % Normal 0.00-20.00 [facility] Comment on above: Performed By: #### T SH3, LIPID, CBC, A1C WTH eA, CRP, CMP, URIC, ESR #### [facility] [address] [place] [address] [place] #### CINDY, RA #### [facility] , Monocytes/100 WBC (Bld) 8.0 % Normal . [facility] Comment on above: Performed By: #### T SH3, LIPID, CBC, A1C WTH eA, CRP, CMP, URIC, ESR #### [facility] [address] [place] [address] [place] #### CINDY, RA #### [facility] , Neutrophils (Bld) [#/Vol] 6.4 10*3/uL Normal 1.8-7.7 [facility] Comment on above: Performed By: #### T SH3, LIPID, CBC, A1C WTH eA, CRP, CMP, URIC, ESR #### [facility] [address] [place] [address] #### CINDY, RA #### [facility] , Neutrophils/100 WBC (Bld) 63.9 % Normal . [facility] Comment on above: Performed By: #### T SH3, LIPID, CBC, A1C WTH eA, CRP, CMP, URIC, ESR #### [facility] [address] [place] [address] [place] #### CINDY, RA #### [facility] , NRBC% 0.2 /100{WBC} Normal 0-0.5 [facility] Comment on above: Performed By: #### T SH3, LIPID, CBC, A1C WTH eA, CRP, CMP, URIC, ESR #### [facility] [address] [place] [address] #### CINDY, RA #### [facility] , Platelet mean volume (Bld) [Entitic vol] 6.3 fL Normal 6.3-10.7 [facility] Comment on above: Performed By: #### T SH3, LIPID, CBC, A1C WTH eA, CRP, CMP, URIC, ESR #### [facility] [address] [place] [address] [place] #### CINDY, RA #### [facility] , Platelets (Bld) [#/Vol] 363 10*3/uL Normal 150-450 [facility] Comment on above: Performed By: #### T SH3, LIPID, CBC, A1C WTH eA, CRP, CMP, URIC, ESR #### [facility] [address] [place] [address] [place] #### CINDY, RA #### [facility] , RBC (Bld) [#/Vol] 4.32 10*6/uL Normal 3.60-5.00 [facility] Comment on above: Performed By: #### T SH3, LIPID, CBC, A1C WTH eA, CRP, CMP, URIC, ESR #### [facility] [address] [place] [address] [place] #### CINDY, RA #### [facility] , WBC (Bld) [#/Vol] 10.0 10*3/uL Normal 3.8-11.6 [facility] Comment on above: Performed By: #### T SH3, LIPID, CBC, A1C WTH eA, CRP, CMP, URIC, ESR #### [facility] [address] [place] [address] [place] #### CINDY, RA #### [facility] , Creatinine and Glomerular fi ltration rate.predicted panel (S/P/Bld)Ordered By: Andrew Sorenson on 06-25-2022 Creatinine [Mass/Vol] 0.79 mg/dL 0.44-1.03 [facility] Eosinophils Auto (Bld) [#/Vo l]Ordered By: Andrew Sorenson on 06-25-2022 Eosinophils (Bld) [#/Vol] 0.1 10*3/uL 0.0-0.45 [facility] Eosinophils/100 WBC Auto (Bl d)Ordered By: Andrew Sorenson on 06-25-2022 Eosinophils/100 WBC (Bld) 1.4 % . [facility] Erythrocyte distribution wid th Auto (RBC) [Ratio]Ordered By: Andrew Sorenson on 06-25-2022 Erythrocyte distribution width (RBC) [Ratio] 14.6 % 11.9-15.3 [facility] Estimated glomerular filtrat ion rate (GFR) non- AmericanOrdered By: Andrew Sorenson on 06-25-2022 GFR/1.73 sq M.predicted among non-blacks MDRD (S/P/Bld) [Vol rate/Area] > 60 mL/Min [facility] Glucose [Mass/volume] in Ser um or PlasmaOrdered By: Andrew Sorenson on 06-25-2022 Glucose [Mass/Vol] 101 mg/dL 70-[address] [facility] Comment on above: ADA recommended refe rence rangeRandom Glucose Reference Range is dependent on time and content of last meal. Glucose of more than 200 mg/dL in a nonstressed, ambulatory subject supports the diagnosis of Diabetes Mellitus. HCG,Quantitativeon 3 HCG,Quantitative 8.00 m[iU]/mL Normal [facility] Comment on above: Result Comment: Appr oximate Approximate hCG Gestational Age Range (mIU/ml) (weeks) 0.2-1 5-50 1-2 50-500 2-3 100-5,000 3-4 500-10,000 4-5 1,000-50,000 5-6 10,000-100,000 6-8 15,000-200,000 8-12 10,000-100,000 PERFORMED BY: [place] [address] PATHOLOGIST AUDIO VISUAL COLLECTIONS COORDINATOR DARIANA ZENG M.D. Performed By: #### T SH3, LIPID, CBC, A1C WT eA, CRP, CMP, URIC, ESR #### [facility] [address] [place] [address] #### CINDY, RA #### [facility] , Hematocrit Auto (Bld) [Volum e fraction]Ordered By: Andrew Sorenson on 06-25-2022 Hematocrit (Bld) [Volume fraction] 36.2 % 34.0-46.4 [facility] Hemoglobin [Mass/volume] in BloodOrdered By: Andrew Sorenson on 06-25-2022 Hemoglobin (Bld) [Mass/Vol] 12.2 g/dL 11.8-15.4 [facility] Ketones Auto test strip (U) [Mass/Vol]Ordered By: Andrew Sorenson on 06-25-2022 Ketones (U) [Mass/Vol] Negative Negative [facility] Leukocytes [#/volume] correc maxime for nucleated erythrocytes in Blood by Automated counOrdered By: Andrew Sorenson on 06-25-2022 WBC corrected for nucl RBC Auto (Bld) [#/Vol] 10.0 10*3/uL 3.8-11.6 [facility] Lymphocytes Auto (Bld) [#/Vo l]Ordered By: Andrew Sorenson on 06-25-2022 Lymphocytes (Bld) [#/Vol] 2.6 10*3/uL 1.00-4.8 [facility] Lymphocytes/100 WBC Auto (Bl d)Ordered By: Andrew Sorenson on 06-25-2022 Lymphocytes/100 WBC (Bld) 26.1 % . [facility] MCH Auto (RBC) [Entitic mass ]Ordered By: Andrew Sorenson on 06-25-2022 MCH (RBC) [Entitic mass] 28.2 pg 24.7-34.3 [facility] MCHC Auto (RBC) [Mass/Vol]Or dered By: Andrew Sorenson on 06-25-2022 MCHC (RBC) [Mass/Vol] 33.6 g/dL 32.0-35.0 [facility] MCV Auto (RBC) [Entitic vol] Ordered By: Andrew Sorenson on 06-25-2022 MCV (RBC) [Entitic vol] 83.8 fL 80-100 [facility] Monocyte distribution width [Entitic volume] in Blood by AutomatedOrdered By: Andrew Sorenson on 06-25-2022 Monocyte distribution width Auto (Bld) [Entitic vol] 17.10 % 0.00-20.00 [facility] Monocytes Auto (Bld) [#/Vol] Ordered By: Andrew Sorenson on 06-25-2022 Monocytes (Bld) [#/Vol] 0.8 10*3/uL 0.0-0.8 [facility] Monocytes/100 WBC Auto (Bld) Ordered By: Andrew Sorenson on 06-25-2022 Monocytes/100 WBC (Bld) 8.0 % . [facility] Neutrophils Auto (Bld) [#/Vo l]Ordered By: Andrew Sorenson on 06-25-2022 Neutrophils (Bld) [#/Vol] 6.4 10*3/uL 1.8-7.7 [facility] Neutrophils/100 WBC Auto (Bl d)Ordered By: Andrew Sorenson on 06-25-2022 Neutrophils/100 WBC (Bld) 63.9 % . [facility] Nitrite Test strip Ql (U)Ord ered By: Andrew Sorenson on 06-25-2022 Nitrite Ql (U) Negative Negative [facility] No Panel InformationOrdered By: Andrew Sorenson on 06-25-2022 Estimated GFR () > 60 mL/Min [facility] Comment on above: GFR estimated refere nce range: According to KDOQI guidelines, <60 ml/min/1.73m2 is sufficient to diagnose a patient with chronic kidney disease. Pharmacy Creatinine Clearance (Chem 105.45 [facility] Nucleated erythrocytes [Pres ence] in Blood by Automated countOrdered By: Andrew Sorenson on 06-25-2022 Nucleated RBC Auto Ql (Bld) 0.2 /100{WBC} 0-0.5 [facility] Platelet mean volume Auto (B ld) [Entitic vol]Ordered By: Andrew Sorenson on 06-25-2022 Platelet mean volume (Bld) [Entitic vol] 6.3 fL 6.3-10.7 [facility] Platelets Auto (Bld) [#/Vol] Ordered By: Andrew Sorenson on 06-25-2022 Platelets (Bld) [#/Vol] 363 10*3/uL 150-450 [facility] Potassium [Moles/volume] in Serum or PlasmaOrdered By: Andrew Sorenson on 06-25-2022 Potassium [Moles/Vol] 3.3 mmol/L 3.5-5.1 [facility] Protein Auto test strip (U) [Mass/Vol]Ordered By: Andrew Sorenson on 06-25-2022 Protein (U) [Mass/Vol] Negative Negative [facility] RBC Auto (Bld) [#/Vol]Ordere d By: Andrew Sorenson on 06-25-2022 RBC (Bld) [#/Vol] 4.32 10*6/uL 3.60-5.00 [facility] Serum or plasma anion gap de terminationOrdered By: Andrew Sorenson on 06-25-2022 Anion gap [Moles/Vol] 13.5 mmol/L 6.0-15.0 [facility] Sodium [Moles/volume] in Ser um or PlasmaOrdered By: Andrew Sorenson on 06-25-2022 Sodium [Moles/Vol] 134 mmol/L 136-[address] [facility] Specific gravity Auto test s trip (U) [Rel density]Ordered By: Andrew Sorenson on 06-25-2022 Specific gravity (U) [Rel density] 1.003 1.001-1.030 [facility] US OB transvaginalon 023 US OB transvaginal [facility] [place] [address] [place] [id number] Ultrasound Report Signed Patient: Debby Grimes MR#: [id number] : 1990 Acct:[id number] Age/Sex: 31 / F ADM Date: 06/25/22 Loc: ER Room: Type: [facility] ER Attending Dr: Ordering Provider: Andrew Sorenson MD Date of Service: 06/25/22 US/US OB <= 14 weeks fetus: OB/Uterine Contractions ([id number]) US/US OB transvaginal: . Copies to: Andrew Sorenson MD FIRST TRIMESTER OB ULTRASOUND (transabdominal and transvaginal) CLINICAL DATA: Abdominal pain. Beta hCG 2027 COMPARISON: None Real-time ultrasound evaluation the pelvis was performed utilizing both a transabdominal and transvaginal approach. TRANSABDOMINAL: Estimated uterine size is approximately 8.2 x 3.6 x 4.4 cm. No focal myometrial abnormalities are seen. The endometrial lining is estimated at 8 - 9 mm. No gestational sac is noted. The ovaries are seen. The left ovary contains a small cystic area measuring at least 16 mm. In size TRANSVAGINAL: Transvaginal scans were performed to better evaluate the uterus and adnexa. By this approach, no focal myometrial abnormalities are seen. The endometrial lining is mildly heterogeneous and estimated at 8 - 9 mm in thickness. There is still no obvious gestational sac. The right ovary measures 2.8 x 2.1 x 1.5 cm. The left ovary measures 4.7 x 2.6 x 2.2 cm. There are small follicles at both ovaries. There is also a larger cystic area with some debris on the left measuring 2.1 x 2.1 x 2.0 cm. There is blood flow surrounding the cyst. No free fluid is seen. US/US OB <= 14 weeks fetus IMPRESSION: NO EVIDENCE OF INTRAUTERINE . 2 CM MILDLY COMPLICATED LEFT OVARIAN CYST. POTENTIAL CORPUS LUTEUM IS THOUGHT MORE LIKELY THAN ECTOPIC HOWEVER FOLLOW-UP SERIAL BETA-HCG IS RECOMMENDED ALONG WITH REPEAT ULTRASOUND, WARRANTED. Impression dictated by: Phoebe Cunningham M.D.06/25/2022 8:25 PM Dictation Location: [place] [address] Tech: Maricel Gupta Transcribed By: ELIJAH 06/25/222024 Dictated By: Phoebe Cunningham MD 06/25/222018 Signed By: 06/25/222024 Normal [facility] Urea nitrogen [Mass/volume] in Serum or PlasmaOrdered By: Andrew Sorenson on 06-25-2022 Urea nitrogen [Mass/Vol] 4 mg/dL 01-23 [facility] Urinalysison 06-25-2022 Appearance (U) Clear Normal Clear [facility] Comment on above: Order Comment: Reaso n for Exam Establishing care with new doctor, encounter for;Flank pain; Reason for Exam Flank pain;PCOS (polycystic ovarian syndrome);Hypokalemia FASTING. JKW Performed By: #### T SH3, LIPID, CBC, A1C WTH eA, CRP, CMP, URIC, ESR #### [facility] [address] [place] [address] #### CINDY, RA #### [facility] , Bilirubin,Urine Negative Normal Negative [facility] Comment on above: Order Comment: Reaso n for Exam Establishing care with new doctor, encounter for;Flank pain; Reason for Exam Flank pain;PCOS (polycystic ovarian syndrome);Hypokalemia FASTING. JKW Performed By: #### T SH3, LIPID, CBC, A1C WTH eA, CRP, CMP, URIC, ESR #### [facility] [address] [place] [address] [place] #### CINDY, RA #### [facility] , Color (U) Yellow Normal Yellow [facility] Comment on above: Order Comment: Reaso n for Exam Establishing care with new doctor, encounter for;Flank pain; Reason for Exam Flank pain;PCOS (polycystic ovarian syndrome);Hypokalemia FASTING. JKW Performed By: #### T SH3, LIPID, CBC, A1C WTH eA, CRP, CMP, URIC, ESR #### [place] [address] [place] #### CINDY, RA #### [facility] , Glucose Ql (U) Normal Normal Normal [facility] Comment on above: Order Comment: Reaso n for Exam Establishing care with new doctor, encounter for;Flank pain; Reason for Exam Flank pain;PCOS (polycystic ovarian syndrome);Hypokalemia FASTING. JKW Performed By: #### T SH3, LIPID, CBC, A1C WTH eA, CRP, CMP, URIC, ESR #### [place] [address] [place] #### CINDY, RA #### [facility] , Ketones Ql (U) Negative Normal Negative [facility] Comment on above: Order Comment: Reaso n for Exam Establishing care with new doctor, encounter for;Flank pain; Reason for Exam Flank pain;PCOS (polycystic ovarian syndrome);Hypokalemia FASTING. JKW Performed By: #### T SH3, LIPID, CBC, A1C WTH eA, CRP, CMP, URIC, ESR #### [place] [address] [place] #### CINDY, RA #### [facility] , Leukocyte esterase Test strip Ql (U) Negative Normal Negative [facility] Comment on above: Order Comment: Reaso n for Exam Establishing care with new doctor, encounter for;Flank pain; Reason for Exam Flank pain;PCOS (polycystic ovarian syndrome);Hypokalemia FASTING. JKW Performed By: #### T SH3, LIPID, CBC, A1C WTH eA, CRP, CMP, URIC, ESR #### [place] [address] [place] #### CINDY, RA #### [facility] , Nitrite,Urine Negative Normal Negative [facility] Comment on above: Order Comment: Reaso n for Exam Establishing care with new doctor, encounter for;Flank pain; Reason for Exam Flank pain;PCOS (polycystic ovarian syndrome);Hypokalemia FASTING. JKW Performed By: #### T SH3, LIPID, CBC, A1C WTH eA, CRP, CMP, URIC, ESR #### [address] #### CINDY, RA #### [facility] , Occult Blood,Urine Negative Normal Negative [facility] Comment on above: Order Comment: Reaso n for Exam Establishing care with new doctor, encounter for;Flank pain; Reason for Exam Flank pain;PCOS (polycystic ovarian syndrome);Hypokalemia FASTING. JKW Result Comment: PERF ORMED BY: [place] [address] PATHOLOGIST AUDIO VISUAL COLLECTIONS COORDINATOR DARIANA ZENG M.D. Performed By: #### T SH3, LIPID, CBC, A1C WTH eA, CRP, CMP, URIC, ESR #### [address] #### CINDY, RA #### [facility] , pH (U) 7.5 [pH] Normal 5.0-9.0 [facility] Comment on above: Order Comment: Reaso n for Exam Establishing care with new doctor, encounter for;Flank pain; Reason for Exam Flank pain;PCOS (polycystic ovarian syndrome);Hypokalemia FASTING. JKW Performed By: #### T SH3, LIPID, CBC, A1C WTH eA, CRP, CMP, URIC, ESR #### [address] #### CINDY, RA #### [facility] , Protein,Urine Negative Normal Negative [facility] Comment on above: Order Comment: Reaso n for Exam Establishing care with new doctor, encounter for;Flank pain; Reason for Exam Flank pain;PCOS (polycystic ovarian syndrome);Hypokalemia FASTING. JKW Performed By: #### T SH3, LIPID, CBC, A1C WTH eA, CRP, CMP, URIC, ESR #### [place] [address] [place] #### CINDY, RA #### [facility] , Specificy [place],Urine 1.003 Normal 1.001-1.030 [facility] Comment on above: Order Comment: Reaso n for Exam Establishing care with new doctor, encounter for;Flank pain; Reason for Exam Flank pain;PCOS (polycystic ovarian syndrome);Hypokalemia FASTING. JKW Performed By: #### T SH3, LIPID, CBC, A1C WTH eA, CRP, CMP, URIC, ESR #### [facility] [address] [place] [address] [place] #### CINDY, RA #### [facility] , Urobilin[place],Urine Normal Normal Normal [facility] Comment on above: Order Comment: Reaso n for Exam Establishing care with new doctor, encounter for;Flank pain; Reason for Exam Flank pain;PCOS (polycystic ovarian syndrome);Hypokalemia FASTING. JKW Performed By: #### T SH3, LIPID, CBC, A1C WTH eA, CRP, CMP, URIC, ESR #### [place] [address] [place] #### CINDY, RA #### [facility] , Urine clarity by refractomet ry automatedOrdered By: Andrew Sorenson on 06-25-2022 Clarity Refractometry automated (U) Clear Clear [facility] Urine glucose measurement by automated test strip (mass/volume)Ordered By: Andrew Sorenson on 06-25-2022 Glucose Auto test strip (U) [Mass/Vol] Normal mg/dL Normal [facility] Urine hemoglobin detection b y automated test stripOrdered By: Andrew Sorenson on 06-25-2022 Hemoglobin Auto test strip Ql (U) Negative Negative [facility] Urine leukocyte esterase det ection by automated test stripOrdered By: Andrew Sorenson on 06-25-2022 Leukocyte esterase Auto test strip Ql (U) Negative Negative [facility] Urobilinogen Auto test strip (U) [Mass/Vol]Ordered By: Andrew Sorenson on 06-25-2022 Urobilinogen (U) [Mass/Vol] Normal mg/dL Normal [facility] WBC Auto (Bld) [#/Vol]Ordere d By: Andrew Sorenson on 06-25-2022 WBC (Bld) [#/Vol] 10.0 10*3/uL 3.8-11.6 [facility] pH Auto test strip (U)Ordere d By: Andrew Sorenson on 06-25-2022 pH (U) 7.5 [pH] 5.0-9.0 [facility] Vital Signs Date Time Vital Sign Value Performing Clinician Jamaal luong 07-01-2022 11:17-0500 Diastolic blood pressure 90 mm[Hg] DO Maulik Kuns Work Phone: [facility] 07-01-2022 11:17-0500 Heart rate 89 /min DO Maulik Kuns Work Phone: [facility] 07-01-2022 11:17-0500 Systolic blood pressure 140 mm[Hg] DO Maulik Kuns Work Phone: [facility] 07-01-2022 08:54-0500 Body temperature 97.9 [degF] DO Maulik Kuns Work Phone: [facility] 07-01-2022 08:54-0500 Respiratory rate 18 /min DO Maulik Kuns Work Phone: [facility] 07-01-2022 08:54-0500 SaO2% (BldA) [Mass fraction] 96 % DO Maulik Kuns Work Phone: [facility] 07-01-2022 08:37-0500 Body height 162.56 cm DO Maulik Kuns Work Phone: [facility] 07-01-2022 08:37-0500 Body weight 78.3 kg DO Maulik Kuns Work Phone: [facility] 06-25-2022 20:28-0500 Heart rate 93 /min DO Maulik Kuns Work Phone: [facility] 06-25-2022 20:28-0500 Respiratory rate 18 /min DO Maulik Kuns Work Phone: [facility] 06-25-2022 20:28-0500 SaO2% (BldA) [Mass fraction] 98 % DO Maulik Kuns Work Phone: [facility] 06-25-2022 18:30-0500 Diastolic blood pressure 65 mm[Hg] DO Maulik Kuns Work Phone: [facility] 06-25-2022 18:30-0500 Systolic blood pressure 142 mm[Hg] DO Maulik Kuns Work Phone: [facility] 06-25-2022 16:07-0500 Body height 162.56 cm DO Maulik Kuns Work Phone: [facility] 06-25-2022 16:07-0500 Body temperature 98.5 [degF] DO Maulik Kuns Work Phone: [facility] 06-25-2022 16:07-0500 Body weight 81.3 kg DO Maulik Kuns Work Phone: [facility] Encounters Encounter Date Encounter Type Care Provider Facility Start: 05-05-2023 End: 05-05-2023 ambulatory Maulik Kuns Other [facility] Other Start: 05-05-2023 Telephone encounter Maulik Desirae [facility] [place] Start: 05-04-2023 End: 05-04-2023 ambulatory MARY J PRINTY Not Available Start: 04-29-2023 End: 04-29-2023 ambulatory Maulik Kuns Facility:[facility] Start: 04-29-2023 End: 04-29-2023 ambulatory DO Maulik Kuns Work Phone: [facility] Work Phone: Start: 04-29-2023 End: 04-29-2023 Patient encounter procedure DO Maulik Kuns Work Phone: [facility] Start: 04-08-2023 End: 04-08-2023 ambulatory MARY PRINTY Not Available Start: 08-12-2022 End: 08-12-2022 ambulatory Maulik Kuns Facility:[facility] Start: 08-12-2022 End: 08-12-2022 ambulatory DO Maulik Kuns Work Phone: [facility] Work Phone: Start: 08-12-2022 End: 08-12-2022 Patient encounter procedure DO Maulik Kuns Work Phone: [facility] Work Phone: Start: 07-29-2022 End: 07-29-2022 ambulatory Maulik Kuns Facility:[facility] Start: 07-29-2022 End: 07-29-2022 ambulatory DO Maulik Kuns Work Phone: [facility] Work Phone: Start: 07-29-2022 End: 07-29-2022 Patient encounter procedure DO Maulik Kuns Work Phone: [facility] Work Phone: Start: 07-21-2022 End: 07-21-2022 ambulatory Maulik Kuns Facility:[facility] Start: 07-21-2022 End: 07-21-2022 ambulatory DO Maulik Kuns Work Phone: [facility] Work Phone: Start: 07-21-2022 End: 07-21-2022 Patient encounter procedure DO Maulik Kuns Work Phone: [facility] Work Phone: Start: 07-14-2022 End: 07-14-2022 ambulatory Maulik Kuns Facility:[facility] Start: 07-14-2022 End: 07-14-2022 ambulatory DO Maulik Kuns Work Phone: [facility] Work Phone: Start: 07-14-2022 End: 07-14-2022 Patient encounter procedure DO Maulik Kuns Work Phone: [facility] Work Phone: Start: 07-07-2022 End: 07-07-2022 ambulatory Maulik Kuns Facility:[facility] Start: 07-07-2022 End: 07-07-2022 ambulatory DO Maulik Kuns Work Phone: [facility] Work Phone: Start: 07-07-2022 End: 07-07-2022 Patient encounter procedure DO Maulik Kuns Work Phone: [facility] Work Phone: Start: 07-04-2022 End: 07-04-2022 ambulatory Mary Printy Facility:[facility] Start: 07-04-2022 End: 07-04-2022 ambulatory DO Maulik Kuns Work Phone: [facility] Work Phone: Start: 07-04-2022 End: 07-04-2022 Patient encounter procedure DO Maulik Kuns Work Phone: [facility] Work Phone: Start: 07-01-2022 End: 07-01-2022 ambulatory Mary Printy Facility:[facility] Start: 07-01-2022 End: 07-01-2022 Discharged Recurring DO Maulik Kuns Work Phone: [facility]fusion [facility] - [facility]/P Work Phone: Start: 06-30-2022 End: 06-30-2022 ambulatory Mary Printy Facility:[facility] Start: 06-30-2022 End: 06-30-2022 ambulatory DO Maulik Kuns Work Phone: [facility] Work Phone: Start: 06-30-2022 End: 06-30-2022 Patient encounter procedure DO Maulik Kuns Work Phone: [facility] Work Phone: Start: 06-27-2022 End: 06-27-2022 ambulatory Andrew Sorenson Facility:[facility] Start: 06-27-2022 End: 06-27-2022 ambulatory DO Maulik Merrill Work Phone: [facility] Work Phone: Start: 06-27-2022 End: 06-27-2022 Patient encounter procedure DO Maulik Merrill Work Phone: [facility] Work Phone: Start: 06-25-2022 End: 06-25-2022 Emergency department patient visit Andrew Sorenson Facility:[facility] Start: 06-25-2022 End: 06-25-2022 Emergency department patient visit DO Maulik Merrill Work Phone: [facility]Emergency Room Work Phone: Procedures Date Procedure Procedure Detail Performing Clinician Start: 06-25-2022 Diagnostic ultrasoun d of gravid uterus DO Maulik Merrill Work Phone: Start: 06-25-2022 Transvaginal obstetr ic ultrasonography DO Maulik Merrill Work Phone: Counseling Maulik Desirae Other Plan of Treatment Date Care Activity Detail Author Glucose measurement estimated from glycated hemoglobin [facility] Homogenous nuclear A b pattern [Titer] in Serum [facility] Nuclear Ab [Titer] in Serum [facility] Patient Education - Th e First Month [facility] Work Phone: Patient referral [facility] Work Phone: Rheumatoid factor [Units/volume] in Serum or Plasma [facility] Payers Date Payer Category Payer Self-pay [id number] 2021 Unknown [id number] 1990 Unknown [id number] 1990 Unknown [id number] .[id number] Blue Cross Blue [facility] GTFAN [id number] Private Health Insurance [facility] [id number] Private Health Insurance [facility] [id number] Unknown [id number] Unknown [id number] .531 Unknown [id number] .531 Unknown [id number] .531 Unknown [id number] .531 Unknown [id number] .531 Unknown [id number] .531 Unknown [id number] .531 Unknown [id number] .531 Unknown [id number] .531 Unknown [id number] .531 Social History Date Type Detail Facility Start: 06-25-2022 End: 06-25-2022 Tobacco smoking status [facility] Smoker (finding) [facility] Start: 1990 Sex Assigned At Female F [facility] Sex Assigned At Sex Assigned At Bir th [facility] Other History general Narrative - Reported 06-03-2022 Note Date & Type Note Facility 06-03-2022 History general N arrative - Reported Type Medical History PCOS and adenomyosis follows with Dr. Darnell Medical History hx ectopic 06/2022 Medical History HX IVF infertility Medical History Colonoscopy Dr. Rodriguez 01/2016 Medical History Right breast biopsy-begniemi 2015 Surgical History colonoscopy Surgical History laparascopy Hospitalization History No Hospitalization histo ry information [facility] Other Evaluation note Note Date & Type Note Facility Evaluation note No assessment information availa ble [facility] Work Phone: Evaluation note Note Date & Type Note Facility Evaluation note No Information [facility] [employer] Other Hospital Discharge instructions Note Date & Type Note Facility Hospital Discharge instructions Additional Instructions Repeat quant hCG in 2 days Call nomes [facility] tomorrow for appointment Return if symptoms are worse [facility] Work Phone: Chief Complaint and Reason for Visit Chief Complaint poss tubal high risk Chief Complaint poss tubal high risk high risk Chief Complaint poss tubal high risk high risk O00.90 Chief Complaint poss tubal high risk high risk O00.90 ectopic without cardiac activity O00.90 Chief Complaint poss tubal high risk high risk O00.90 ectopic without cardiac activity O00.90 soof Chief Complaint poss tubal high risk high risk O00.90 ectopic without cardiac activity O00.90 soof O00.90 Chief Complaint poss tubal high risk high risk O00.90 ectopic without cardiac activity O00.90 soof O00.90 O00.90 Chief Complaint poss tubal high risk high risk O00.90 ectopic without cardiac activity O00.90 soof O00.90 O00.90 O00.90 Chief Complaint poss tubal high risk high risk O00.90 ectopic without cardiac activity O00.90 soof O00.90 O00.90 O00.90 000.90 Chief Complaint z71.89 r10.9 e87.6 z 13.6 e04.9 Advance Directives Advance Directive Response Recorded Date/ Time Advance Directives No March 09, 2017 2:16pm Advance Directive Response Recorded Date/ Time Advance Directives No March 09, 2017 3:16pm Summary Purpose Family History No Family History Records FoundNo Family History Records Found Additional Source Comments Care Teams (unrecognized sec tion and content) Team Status: Inactive Member Role Status Dates Maulik Merrill , DO Primary Care Provider Active Andrew Sorenson MD Emergency Provider Active Team Status: Active Member Role Status Dates Maulik Merrill , DO Primary Care Provider Active Team Status: Inactive Member Role Status Dates Maulik Merrill , DO Primary Care Provider Active Andrew Sorenson MD Attending Provider Active Team Status: Inactive Member Role Status Dates Maulik Merrill , DO Primary Care Provider Active Mary Darnell MD Attending Provider Active Team Status: Inactive Member Role Status Dates Maulik Merrill , DO Primary Care Provider, Attending Provi robert Active Goals (unrecognized section and content) Goals may be documented in a n alternate sectionGoals may be documented in an alternate sectionGoals may be documented in an alternate sectionGoals may be documented in an alternate sectionGoals may be documented in an alternate sectionGoals may be documented in an alternate sectionGoals may be documented in an alternate sectionGoals may be documented in an alternate sectionGoals may be documented in an alternate sectionGoals may be documented in an alternate sectionNo Information INFORMATION SOURCE (unrecogn ized section and content) DATE CREATED AUTHOR 05/02/2023 [facility] DATE CREATED AUTHOR AUTHOR'S ORGANIZ ATION 05/05/2023 [facility] EPIC REASON FOR VISIT (unrecogniz ed section and content) Clinical FOR RECORDS PERTAINING TO PATIENTS WHO ARE OR HAVE BEEN ENROLLED IN A CHEMICAL DEPENDENCY/SUBSTANCEABUSE PROGRAM, SOME INFORMATION MAY BE OMITTED. This clinical summary was aggregated from multiple sources. Caution should be exercised in using it in the provision of clinical care. This summary normalizes information from multiple sources, and as a consequence, information in this document may materially change the coding, format and clinical context of patient data. In addition, data may be omitted in some cases. CLINICAL DECISIONS SHOULD BE BASED ON THE PRIMARY CLINICAL RECORDS. [facility]. provides no warranty or guarantee of the accuracy or completeness of information in this document.
--- NOTE | 2023-05-11 18:10 | XR_ITS ---
[address] [address] Patient Name: DEBBY GRIMES MRN: [id number] date: 1990 Sex: F Assigned Patient Location: ER Current Patient Location: ER Accession/Order Number: [id number] Exam Date: 05/11/2023 18:17 Report Date: 05/11/2023 18:38 At the request of: EARNEST SHEPPARD Procedure: XR chest 1V Exam: Radiographs: XR chest 1V Reason for exam: Chest pain Comparison: Chest x-ray dated 04/23/2023 XR/XR chest 1V IMPRESSION: Unremarkable chest x-ray. Electronically authenticated by: GUILLAUME OLIVERA Date: 05/11/2023 18:38
--- NOTE | 2023-05-11 18:10 | ECG_ITS ---
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
--- NOTE | 2023-05-11 18:10 | ED.CHESTPAI1 ---
HPI - Chest Pain General Chief Complaint: Chest Pain Stated Complaint: chest pain Time Seen by Provider: 05/11/23 17:59 Source: patient Mode of arrival: walk-in Limitations: no limitations History of Present Illness HPI narrative: 32-year-old female presents for chest pain. She's had this for 2-3 weeks. Earlier today she had an upper endoscopy and she was told that it was fine. She gets these shooting pains in various areas of her body including her legs and arms. No trauma or fever and she has no complaints of shortness of breath to me. Related Data Previous Rx's Medication Instructions Recorded omeprazole 40 mg capsule,delayed 40 mg PO DAILY 30 days #30 caps 04/23/23 release Allergies Allergy/AdvReac Type Severity Reaction Status Date / Time coconut Allergy Severe Verified 04/23/23 18:25 Penicillins Allergy Severe Verified 04/23/23 18:25 Review of Systems ROS Narrative A ten point review of systems is negative except as noted above. [facility] Medical History (Updated 05/11/23 @ 18:47 by Oli Johnson MD) GERD (gastroesophageal reflux disease) ?K21.9 - Gastro-esophageal reflux disease without esophagitis (ICD-10) Exam Narrative Exam Narrative: Nurses note and vital signs reviewed and patient is not hypoxic. General: The patient appears well and in no apparent distress. Patient is resting comfortably on cart. Skin: Warm, dry, no pallor noted. There is no rash noted. Head: Normocephalic, atraumatic Eye: Normal conjunctiva, no drainage Ears, Nose, Mouth, and Throat: oral mucosa is moist. Nares patent. Cardiovascular: Regular Rate and Rhythm, tachycardic Respiratory: Patient is in no distress, no accessory muscle use, lungs are clear to auscultation, no wheezing, rales or rhonchi Back: non-tender GI: soft and nontender Musculoskeletal: The patient has no evidence of calf tenderness, no pitting edema, symmetrical pulses noted bilaterally Neurological: A&O, normal speech Psychiatric: Cooperative Constitutional Vital Signs, click to edit/add: Last Vital Signs Temp 97.9 F 05/11/23 18:00 Pulse 123 H 05/11/23 18:00 Resp 18 05/11/23 18:00 BP 172/90 H 05/11/23 18:00 Pulse Ox 99 05/11/23 18:00 O2 Del Method Room Air 05/11/23 18:00 Course Vital Signs Vital signs: Vital Signs Temperature 97.9 F 05/11/23 18:00 Pulse Rate 123 H 05/11/23 18:00 Respiratory Rate 18 05/11/23 18:00 Blood Pressure 172/90 H 05/11/23 18:00 Pulse Oximetry 99 05/11/23 18:00 Oxygen Delivery Method Room Air 05/11/23 18:00 Temperature 97.9 F 05/11/23 18:00 Pulse Rate 123 H 05/11/23 18:00 Respiratory Rate 18 05/11/23 18:00 Blood Pressure 172/90 H 05/11/23 18:00 Pulse Oximetry 99 05/11/23 18:00 Oxygen Delivery Method Room Air 05/11/23 18:00 MDM - Chest Pain MDM Narrative Medical decision making narrative: tests are ordered including CT angiogram of the chest and the patient is signed out to Dr. Adams. Lab Data Labs: Lab Results 05/11/23 Range/Units 18:20 WBC 7.4 (4.0-11.0) 10^3/uL RBC 5.18 (4.20-5.40) 10^6/uL Hgb 14.4 (12.0-16.0) g/dL Hct 44.4 (36.0-48.0) % MCV 85.7 (81.0-99.0) fL MCH 27.8 (26.7-34.0) pg MCHC 32.4 (29.9-35.2) g/dL RDW 12.9 (11.0-15.0) % Plt Count 312 (150-450) 10^3/uL MPV 8.9 L (9.5-13.5) fL Neut % (Auto) 65.7 (43.0-75.0) % Lymph % (Auto) 26.7 (20.5-60.0) % [place] % (Auto) 6.8 (1.7-12.0) % Eos % (Auto) 0.3 L (0.9-7.0) % Baso % (Auto) 0.4 (0.2-2.0) % Neut # (Auto) 4.9 (1.4-6.5) 10^3/uL Lymph # (Auto) 2.0 (1.2-3.8) 10^3/uL [place] # (Auto) 0.5 (0.3-0.8) 10^3/uL Eos # (Auto) 0.0 (0.0-0.7) 10^3/uL Baso # (Auto) 0.0 (0.0-0.1) 10^3/uL Abs Immat Gran (auto) 0.01 (0.00-0.03) 10^3/uL Imm/Tot Granulo (auto) 0.1 (0.0-0.5) % ECG Data Attestation: I personally reviewed and interpreted this ECG as follows: (EKG on my interpretation shows sinus tachycardia with a rate 108.) Discharge Plan Discharge Chief Complaint: Chest Pain Clinical Impression: Chest pain Patient Disposition: Still a Patient Prescriptions / Home Meds: No Action omeprazole 40 mg capsule,delayed release(DR/EC) 40 mg PO DAILY 30 Days Qty: 30 0RF Referrals: JENIFER GOODMAN [Primary Care Provider] - 1 week
[2023-05-11 18:35] LABS: Basophils Percent Auto 0.4 % (0.2-2.0); Eosinophils Percent Auto 0.3 % (0.9-7.0); Hematocrit 44.4 % (36.0-48.0); Hemoglobin 14.4 g/dL (12.0-16.0); Immature Granulocytes Abs Auto 0.01 10^3/uL (0.00-0.03); Immature Granulocytes Pct Auto 0.1 % (0.0-0.5); Lymphocytes Percent Auto 26.7 % (20.5-60.0); Mean Corpuscular HGB Conc 32.4 g/dL (29.9-35.2); Mean Corpuscular Hemoglobin 27.8 pg (26.7-34.0); Mean Corpuscular Volume 85.7 fL (81.0-99.0); Mean Platelet Volume 8.9 fL (9.5-13.5); Monocytes Absolute Auto 0.5 10^3/uL (0.3-0.8); Monocytes Percent Auto 6.8 % (1.7-12.0); Neutrophils Absolute Auto 4.9 10^3/uL (1.4-6.5); Neutrophils Percent Auto 65.7 % (43.0-75.0); Platelet Count 312 10^3/uL (150-450); Red Blood Count 5.18 10^6/uL (4.20-5.40); Red Cell Distribution Width 12.9 % (11.0-15.0); White Blood Count 7.4 10^3/uL (4.0-11.0)
--- NOTE | 2023-05-11 18:45 | CT_ITS ---
The [address] [address] Patient Name: DEBBY GRIMES MRN: [id number] date: 1990 Sex: F Assigned Patient Location: ER Current Patient Location: ER Accession/Order Number: [id number] Exam Date: 05/11/2023 19:23 Report Date: 05/11/2023 19:58 At the request of: EARNEST SHEPPARD Procedure: CT angio chest EXAM: CT angio chest HISTORY: right-sided chest pain, mildly tachycardic COMPARISON: None. TECHNIQUE: CT angiography of the chest was performed without IV contrast followed by IV contrast, including 3D post processing CTA image reconstruction. CT dose reduction technique was used, including Automated Exposure Control. FINDINGS: Diagnostic quality: Adequate There is no evidence for pulmonary embolism. The heart is not enlarged. There is no pericardial effusion. There are no abnormally enlarged hilar or mediastinal lymph nodes. The central tracheobronchial tree is clear. No focal consolidation. Small foci of atelectasis are seen in the medial right middle lobe and the lingula. There is no pleural effusion. No acute process identified in the visualized upper abdomen. No destructive osseous changes are seen. CT/CT angio chest IMPRESSION: No CT findings to suggest pulmonary embolism. Mild right middle lobe and lingular atelectasis. Electronically authenticated by: JUAN M HILL Date: 05/11/2023 19:58
[2023-05-11 19:02] LABS: HCG Qualitative NEGATIVE (NEGATIVE)
[2023-05-11 19:03] LABS: Anion Gap 15.2; BUN Creatinine Ratio 9.6; Calcium 9.8 mg/dL (8.5-10.1); Carbon Dioxide 26.5 mmol/L (21.0-32.0); Chloride 100 mmol/L (98-107); Estimated GFR (African America >60 (>=60); Estimated GFR (Non-African Ame >60 (>=60); Glucose 171 mg/dL (74-106); Potassium 3.7 mmol/L (3.5-5.1); Sodium 138 mmol/L (136-145); Troponin I High Sensitivity <4.0 pg/mL (4.0-51.3)
== END 2023-05-11 20:34 | disposition home or self-care (01) ==
PROVIDERS: Emergency Medicine; Emergency Provider Internal Medicine; PCP Family Medicine
DX: R07.89 Other chest pain (principal); K21.9 Gastro-esophageal reflux disease without esophagitis
CPT/HCPCS: 36415; 71045; 71275; 80048; 84484; 84703; 85025; 93005; 99285; Q9967